=== PATIENT | female | born 1950 | race Caucasian/White ===

== ENCOUNTER → 2021-03-18 20:07 | Emergency (ER) | payer OTHER, SELFPAY ==
[2021-03-18 20:08] VITALS: BP 139/84; PULSE 100; RESP 15; TEMP 36.4; O2SAT 99; BMI 26.6
[2021-03-18 20:12] VITALS: BP 139/84; PULSE 100; RESP 15; TEMP 36.4; O2SAT 99
--- NOTE | 2021-03-18 20:35 | EX.ED.DYSGE1 ---
HPI History of Present Illness Chief Complaint: Cellulitis Narrative Narrative: Patient presenting with cellulitic change on the right inner thigh spans from just proximal to her knee medially just proximal to her groin. There is some swelling in this area. Patient denies any systemic signs or symptoms. She denies injury. She denies previous instances of infection. She states she has no significant medical history. PFSH PFS Medical History Hypertension Home Medications Artery Care 1 tab DAILY 03/18/21 [History Last Taken Unknown] HCTZ 25 mg DAILY 03/18/21 [History Last Taken Unknown] Organo Iodine Drops 2 drp DAILY 03/18/21 [History Last Taken Unknown] cephalexin 500 mg PO Q6 #40 capsule 03/18/21 [Rx Last Taken Unknown] omega 1-uth-tys-fish oil [Fish Oil] cap PO 03/18/21 [History Last Taken Unknown] Allergy/AdvReac Type Severity Reaction Status Date / Time No Known Allergies Allergy Verified 03/18/21 20:08 Social History Smoking Status: Never smoker ROS ROS ED Constitutional Constitutional ED: Denies chills or fever(s) Eyes Eyes: Denies blurry vision or change in vision ENT ENT ED: Denies ear pain or rhinorrhea Cardiovascular Cardiovascular: Denies chest pain or palpitations Respiratory/Chest Respiratory/Chest: Denies cough or dyspnea Gastrointestinal Gastrointestinal: Denies abdominal pain, nausea or vomiting Genitourinary Genitourinary ED: Denies dysuria or hematuria Musculoskeletal Musculoskeletal: Denies arthralgias or myalgias Integumentary Reports rash EXAM Physical Exam Const Vital Signs: 03/18/21 20:08 03/18/21 20:12 03/18/21 20:19 Temperature 97.6 F L 97.6 F L Temperature Source Temporal Temporal Pulse Rate 100 100 Respiratory Rate 15 15 Respiratory Pattern Normal Blood Pressure 139/84 H 139/84 H Blood Pressure Mean 102 102 Pulse Ox 99 99 Oxygen Delivery Method Room Air Room Air Positive well nourished General Appearance ED: NAD HEENT Reports moist mucous membranes Negative for trauma Eyes PERRL and EOMs intact bilaterally Resp normal respiratory effort and clear to auscultation bilaterally Cardio regular rate and regular rhythm Neuro oriented x3 and CN's II-XII intact bilaterally Sensorium / Orientation: alert Psych mental status grossly normal Skin Skin Narrative: 15 cm x 3 cm area of erythema on the right inner thigh with what appears to be lymphadenopathy underlying. Minimally tender to palpation. Mildly increased warmth. MDM MDM MDM Narrative Medical decision making narrative: Patient has cellulitic change on the right inner thigh. There is also some lymphadenopathy with no history of DVT. Patient will be started on Keflex in the ED and will be given a prescription for this. Because of the lymphadenopathy I will have her leg ultrasound tomorrow to rule out DVT. Patient amenable to this plan. Given return precautions. Patient stable discharge. Impression: 1. Right leg cellulitis 2. Right leg lymphadenopathy Discharge Plan Triage Chief Complaint: Cellulitis ED Provider: Liang Jorgensen Dx/Rx/DC Orders Instructions: Lymphadenopathy, Cellulitis Prescriptions: New cephalexin 500 mg capsule 500 mg PO Q6 Qty: 40 RF: 0 No Action Artery Care 1 TAB 1 tab DAILY RF: 0 omega 8-gxk-lkn-fish oil [Fish Oil] 1,200 (144-216) mg Capsule PO RF: 0 HCTZ 25 MG 25 mg DAILY RF: 0 Organo Iodine Drops 2 DROP 2 drp DAILY RF: 0 Primary Care Provider: Jamar Aceves Referrals: Jamar Aceves DO [Primary Care Provider] - Disposition Disposition: Home, Self Care
== END | disposition home or self-care (01) ==
PROVIDERS: Emergency Provider Student in an Organized Health Care Education/Training Program; PCP Family Medicine
DX: L03.115 Cellulitis of right lower limb (principal); R59.1 Generalized enlarged lymph nodes
CPT/HCPCS: 99285

== ENCOUNTER 2025-03-12 17:12 | Emergency (ER) | payer OTHER, SELFPAY ==
[2025-03-12 17:13] VITALS: BP 150/91; PULSE 94; RESP 16; TEMP 37.1; O2SAT 96; BMI 29.1
[2025-03-12 17:16] VITALS: BP 150/91; PULSE 95; RESP 16; TEMP 37.1; O2SAT 97
[2025-03-12] MEDS: Smz/Tmp Ds Tablet 1 TABLET PO (18:06)
[2025-03-12 18:08] VITALS: BP 127/75; PULSE 93; RESP 18; TEMP 37; O2SAT 96
== END 2025-03-12 18:12 | disposition home or self-care (01) ==
PROVIDERS: Emergency Provider Emergency Medicine; PCP Family Medicine; Visit Provider Emergency Medicine
DX: L03.114 Cellulitis of left upper limb (principal); I10 Essential (primary) hypertension; Z79.899 Other long term (current) drug therapy
CPT/HCPCS: 99282

== ENCOUNTER 2025-03-15 14:27 | Emergency (ER) | payer OTHER, SELFPAY ==
[2025-03-15 14:29] VITALS: BP 141/88; PULSE 81; RESP 18; TEMP 36.8; O2SAT 97; BMI 28.9
[2025-03-15 16:28] VITALS: BP 132/83; PULSE 82; RESP 14; O2SAT 99
[2025-03-15] MEDS: 0.9% Normal Saline (1000mL) 1,000 ML 1000 ML IV (17:33)
[2025-03-15 17:36] LABS: Hematocrit 37.0 % (37-47); Hemoglobin 12.5 g/dL (12.0-15.0); Immature Granulocytes Count 0.040 X10^3/uL (0.0-0.0); Mean Corp Hgb Conc 33.8 g/dL (32-36); Mean Corpuscular Volume 83.5 fL (81-99); Mean Platelet Vol. 8.7 fl (6.2-12.0); NRBC Flagged by Analyzer 0 % (0-5); Platelet Count 411 K/mm3 (150-450); RBC Distribution Width CV 12.4 % (11.6-14.6); RBC Distribution Width SD 37.8 fl (35.1-43.9); Red Blood Count 4.43 M/mm3 (4.2-5.4); White Blood Count 8.5 K/mm3 (4.4-11.0)
[2025-03-15 18:00] VITALS: BP 150/92; PULSE 79; RESP 17; O2SAT 98
[2025-03-15 18:15] LABS: Anion Gap 13 (5-15); BUN 12 mg/dL (4-19); BUN/Creat Ratio 14.3 RATIO (10-20); Calcium,Total 9.8 mg/dL (7.6-11.0); Carbon Dioxide 25.1 mmol/L (21.0-32.0); Chloride 95 mmol/L (98-108); Estimated Creatinine Clearance 55.69 ml/min (50-250); Glucose 114 mg/dL (70-99); Potassium 3.5 mmol/L (3.3-5.1)
[2025-03-15 19:11] VITALS: BP 150/92; PULSE 82; RESP 16; O2SAT 98
[2025-03-15 20:26] VITALS: BP 130/107; PULSE 91; RESP 18; TEMP 36.8; O2SAT 98
== END 2025-03-15 20:33 | disposition home or self-care (01) ==
PROVIDERS: Emergency Provider Emergency Medicine; PCP Family Medicine; Visit Provider Emergency Medicine
DX: R53.1 Weakness (principal); L27.1 Localized skin eruption due to drugs and medicaments taken internally; T36.8X5A Adverse effect of other systemic antibiotics, initial encounter; L03.114 Cellulitis of left upper limb; I10 Essential (primary) hypertension; Z79.899 Other long term (current) drug therapy
CPT/HCPCS: 80048; 85025; 96360; 96361; 99283; A4216

== ENCOUNTER 2025-03-27 16:51 | Emergency (ER) | payer OTHER, SELFPAY ==
[2025-03-27 16:52] VITALS: BP 155/99; PULSE 100; RESP 16; TEMP 37; O2SAT 100; BMI 28.8
--- NOTE | 2025-03-27 17:19 | RAD_ITS ---
PROCEDURE: CERV SPINE 2 OR 3 VIEWS 03/27/2025 REASON FOR EXAM: LEFT CERVICAL RADICULOPATHY TECHNIQUE: CERV SPINE 2 OR 3 VIEWS COMPARISON: None FINDINGS: Cervical vertebral body heights and alignment are maintained. There is mild multilevel disc height loss with endplate osteophyte formation, uncovertebral and facet arthrosis which is worst at C5-6 and C6-7. Prevertebral soft tissues are normal in thickness. The odontoid view is unremarkable. Lung apices are clear. RAD/Cerv Spine 2 or 3 Views IMPRESSION: Mild degenerative changes of the cervical spine are worst at C5-6 and C6-7. Reading Location: [id number]
--- OUTSIDE RECORDS SUMMARY | 2025-03-27 17:23 | XMS RPT_ITS | CCD ---
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 Jamar Aceves DO Primary Care Provider Dr. Sergio Benavides DO Emergency Provider Hong OSBORNE, Dr. Carlos Emergency Provider Jamar Aceves Primary Care Unavailable Terrance Pitts Attending Unavailable Jamar Aceves Primary Care Unavailable Sergio Benavides Attending Unavailable Allergies Allergy Classification Reported Allergen(s) Allergy Type Date of Onset Reaction(s) Facility (1 source) Sulfamethoxazole Drug Allergy 5 [facility] (1 source) Trimethoprim Drug Allergy 5 [facility] (1 source) Sulfamethoxazole Drug Allergy 5 [facility] (1 source) Trimethoprim Drug Allergy 5 [facility] Medications Current Medications Medication Drug Class(es) Dates Sig (Normalized) Sig (Original) cephalexin 500 mg oral capsule (3 sources) Cephalosporin Antibacterial Start: 03-15-2025 take 1 capsule by mouth three times daily Cephalexin 500 mg capsule Active 500 mg PO THREE TIMES A DAY March 15, 2025 12:00am Start: 03-18-2021 End: 03-12-2025 take 1 capsule by mouth every six hours Cephalexin 500 mg capsule Discontinued 500 mg PO EVERY 6 HOURS 40 0 March 18, 2021 12:00am March 12, 2025 5:13pm hydroCHLOROthiazide 25 mg oral tablet (2 sources) Thiazide Diuretic Start: 03-12-2025 take 1 tablet by mouth once daily Hydrochlorothiazide 25 mg tablet Active 25 mg PO DAILY March 12, 2025 12:00am sulfamethoxazole 800 mg / trimethoprim 160 mg oral tablet (2 sources) Dihydrofolate Reductase Inhibitor Antibacterial, Sulfonamide Antimicrobial Start: 03-12-2025 Sulfamethoxazole-Trime thoprim (Bactrim Ds) 800-160 mg tablet Active 1 {tbl} PO TWICE A DAY 14 7 0 March 12, 2025 12:00am Completed/Discontinued Medications Medication Drug Class(es) Dates Sig (Normalized) Sig (Original) Artery Care 1 TAB (2 sources) Start: 03-18-2021 End: 03-12-2025 Artery Care 1 TAB Discontinued 1 {tbl} DAILY March 18, 2021 12:00am March 12, 2025 5:13pm HCTZ 25 MG (2 sources) Start: 03-18-2021 End: 03-12-2025 HCTZ 25 MG Discontinued 25 mg DAILY March 18, 2021 12:00am March 12, 2025 5:13pm [place] 2-Hts-Lpq-Fish Oil (Fish Oil) 1,200 (144-216) mg Capsule (2 sources) Start: 03-18-2021 End: 03-12-2025 [place] 5-Dfj-Uhq-Fish Oil (Fish Oil) 1,200 (144-216) mg Capsule Discontinued NMA PO March 18, 2021 12:00am March 12, 2025 5:13pm Organo Iodine Drops 2 DROP (2 sources) Start: 03-18-2021 End: 03-12-2025 Organo Iodine Drops 2 DROP Discontinued 2 NMA DAILY March 18, 2021 12:00am March 12, 2025 5:13pm 2 DROPS IN WATER Problems Problem Classification Problem Date Documented Da te Episodic/Chronic Malaise and fatigue (1 source) Weakness; Translations: [Weakness] Onset: 03-19-2025 Episodic Skin and subcutaneous tissue infections (3 sources) Cellulitis; Translations: [Cellulitis, unspecified] Onset: 03-19-2025 03-12-2025 Episodic Results Test Name Value Interpretation Reference Range Facility Absolute lymphocyte countOrd ered By: Terrance Pitts on 03-15-2025 Lymphocytes Auto (Unsp spec) [#/Vol] 1.46 10*3/uL 0.83-4.51 [facility] Absolute neutrophil countOrd ered By: Terrance Pitts on 03-15-2025 Neutrophils (Bld) [#/Vol] 6.5 10*3/uL 2.0-7.7 [facility] Anion gap in Serum or Plasma Ordered By: Terrance Pitts on 03-15-2025 Anion gap [Moles/Vol] 13 mmol/L 5-15 [facility] Automated lymphocyte count a s percentage of total leukocytesOrdered By: Terrance Pitts on 03-15-2025 Lymphocytes/100 WBC Auto (Unsp spec) 17.2 % Low 19-41 [facility] BUN/creatinine ratioOrdered By: Terrance Pitts on 03-15-2025 Urea nitrogen/Creatinine [Mass ratio] 14.3 mg/mg 10- [facility] Basic Metabolic Profile (BMP )on 03-15-2025 BUN/CRE 14.3 RATIO Normal 06-28 [facility] Comment on above: Performed By: #### L 500.2500, L100.0100 #### [facility] [address] [place], [address] Calcium [Mass/Vol] 9.8 mg/dL Normal 7.6-11.0 [facility] Comment on above: Performed By: #### L 500.2500, L100.0100 #### [facility] [address] [place], [address] Chloride [Moles/Vol] 95 mmol/L Low 98-108 [facility] Comment on above: Performed By: #### L 500.2500, L100.0100 #### [facility] [address] [place], [address] CO2 [Moles/Vol] 25.1 mmol/L Normal 21.0-32.0 [facility] Comment on above: Performed By: #### L 500.2500, L100.0100 #### [facility] [address] [place], [address] Creatinine [Mass/Vol] 0.81 mg/dL Normal 0.70-1.20 [facility] Comment on above: Performed By: #### L 500.2500, L100.0100 #### [facility] [address] [place], [address] ECRCL 55.69 ml/min Normal 50-250 [facility] Comment on above: Performed By: #### L 500.2500, L100.0100 #### [facility] [address] [place], [address] GAP 13 Normal 5-15 [facility] Comment on above: Performed By: #### L 500.2500, L100.0100 #### [facility] [address] [place], [address] GFR/1.73 sq M.predicted among non-blacks MDRD (S/P/Bld) [Vol rate/Area] 75 mL/min/{1.73_m2} Normal >60 [facility] Comment on above: Result Comment: mL/m in/1.73m2 CKD-EPI Creatinine Equation (2020) Performed By: #### L 500.2500, L100.0100 #### [facility] [address] [place], [address] Glucose [Mass/Vol] 114 mg/dL High 70-99 [facility] Comment on above: Performed By: #### L 500.2500, L100.0100 #### [facility] [address] [place], [address] Potassium [Moles/Vol] 3.5 mmol/L Normal 3.3-5.1 [facility] Comment on above: Performed By: #### L 500.2500, L100.0100 #### [facility] [address] [place], [address] Sodium [Moles/Vol] 133 mmol/L Normal 133-145 [facility] Comment on above: Performed By: #### L 500.2500, L100.0100 #### [facility] [address] [place], [address] Urea nitrogen [Mass/Vol] 12 mg/dL Normal 4-19 [facility] Comment on above: Performed By: #### L 500.2500, L100.0100 #### [facility] [address] [place], [address] Basophil percentageOrdered B y: Terrance Pitts on 03-15-2025 Basophils/100 WBC (Bld) 0.2 % 0-1 [facility] CBC W/Diff, Automatedon Absolute Lymph 1.46 X10 3/uL Normal 0.83-4.51 [facility] Comment on above: Performed By: #### L 500.2500, L100.0100 #### [facility] [address] [place], [address] Absolute Neut 6.5 X10 3/uL Normal 2.0-7.7 [facility] Comment on above: Performed By: #### L 500.2500, L100.0100 #### [facility] [address] [place], [address] Basophils/100 WBC (Bld) 0.2 % Normal 0-1 [facility] Comment on above: Performed By: #### L 500.2500, L100.0100 #### [facility] [address] [place], [address] Eosinophils/100 WBC (Bld) 2.5 % Normal 0-5 [facility] Comment on above: Performed By: #### L 500.2500, L100.0100 #### [facility] [address] [place], [address] Erythrocyte distribution width (RBC) [Ratio] 12.4 % Normal 11.6-14.6 [facility] Comment on above: Performed By: #### L 500.2500, L100.0100 #### [facility] [address] [place], [address] Hematocrit (Bld) [Volume fraction] 37.0 % Normal 37-47 [facility] Comment on above: Performed By: #### L 500.2500, L100.0100 #### [facility] [address] [place], [address] Hemoglobin (Bld) [Mass/Vol] 12.5 g/dL Normal 12.0-15.0 [facility] Comment on above: Performed By: #### L 500.2500, L100.0100 #### [facility] [address] [place], [address] IG% 0.500 Normal 0.0-0.9 [facility] Comment on above: Result Comment: IG% - Immature Granulocytes (promyelocytes, myelocytes and metamyelocytes) > 1% indicates that a LEFT SHIFT is Present. Performed By: #### L 500.2500, L100.0100 #### [facility] [address] [place], [address] Lymphocytes/100 WBC (Bld) 17.2 % Low 19-41 [facility] Comment on above: Performed By: #### L 500.2500, L100.0100 #### [facility] [address] [place], [address] MCH (RBC) [Entitic mass] 28.2 pg Normal 27.0-32.0 [facility] Comment on above: Performed By: #### L 500.2500, L100.0100 #### [facility] [address] [place], [address] MCHC (RBC) [Mass/Vol] 33.8 g/dL Normal 32-36 [facility] Comment on above: Performed By: #### L 500.2500, L100.0100 #### [facility] [address] [place], [address] MCV (RBC) [Entitic vol] 83.5 fL Normal 81-99 [facility] Comment on above: Performed By: #### L 500.2500, L100.0100 #### [facility] [address] [place], [address] Monocytes/100 WBC (Bld) 3.8 % Normal 0-10 [facility] Comment on above: Performed By: #### L 500.2500, L100.0100 #### [facility] [address] [place], [address] Neutrophils/100 WBC (Bld) 75.8 % High 47-70 [facility] Comment on above: Performed By: #### L 500.2500, L100.0100 #### [facility] [address] [place], [address] Nucleated RBC (Bld) [#/Vol] 0 10*3/uL Normal 0-5 [facility] Comment on above: Performed By: #### L 500.2500, L100.0100 #### [facility] [address] [place], [address] Platelet mean volume (Bld) [Entitic vol] 8.7 fL Normal 6.2-12.0 [facility] Comment on above: Performed By: #### L 500.2500, L100.0100 #### [facility] [address] [place], [address] Platelets (Bld) [#/Vol] 411 10*3/uL Normal 150-450 [facility] Comment on above: Performed By: #### L 500.2500, L100.0100 #### [facility] [address] [place], [address] RBC (Bld) [#/Vol] 4.43 10*6/uL Normal 4.2-5.4 [facility] Comment on above: Performed By: #### L 500.2500, L100.0100 #### [facility] [address] [place], [address] RDW SD 37.8 fl Normal 35.1-43.9 [facility] Comment on above: Performed By: #### L 500.2500, L100.0100 #### [facility] [address] [place], [address] WBC (Bld) [#/Vol] 8.5 10*3/uL Normal 4.4-11.0 [facility] Comment on above: Performed By: #### L 500.2500, L100.0100 #### [facility] [address] [place], [address] Carbon dioxide, total [Moles /volume] in Central venous bloodOrdered By: Terrance Pitts on 03-15-2025 CO2 [Moles/Vol] 25.1 mmol/L 21.0-32.0 [facility] Chloride assayOrdered By: Leo Pitts on 03-15-2025 Chloride [Moles/Vol] 95 mmol/L Low 98-108 [facility] Emergency Department Summary on 03-15-2025 Emergency Department Summary [facility] Medical Records Department [address] [place] [address] Emergency Department Summary 03/15/25 MR#: [id number] Acct: [id number] Name: TONY TOTH Rep #: [id number] : 1950 75 From: Terrance Pitts MD PCP: Dr. Jamar Aceves, DO Status:DEP ER Location: ED HPI History of Present Illness Chief Complaint: Weakness Informant: patient and family Onset/Context/Van key Onset: Days Context: Gradual Onset Timing: Continuous Current Severity: Mild Maximum Severity: Mild Narrative Narrative: 75-year-old [facility] female history of hypertension. Had poison jose angel on her left arm about a week ago started having redness and discomfort was seen in the emergency department this past Saturday with diagnosis of cellulitis. Was started on Bactrim. She was taken to Bactrim for several days and developed a rash on her extremities consistent with allergic reaction. Talk to her primary care physician today who stopped the Bactrim and called her in another antibiotic which she is going to start but has not taken it yet. Family states she is she has been generally weak and has not had much p.o. intake they are concerned she is dehydrated. She denies vomiting or fever. She denies diarrhea or melena. Prior similar symptoms: No Recent Illness/Hospitaliza tion: No PFSH PFSH Medical History Wrist fracture Hypertension Home Medications ???Medication ???Instructions ???Recorded ???Last Taken ???Type hydrochlorothiazide 25 mg tablet 25 mg PO DAILY 03/12/25 03/15/25 H istory sulfamethoxazole 800 1 tab PO BID 7 days #14 tabs 03/1203/15/25 Rx mg-trimethoprim 160 mg tablet (Bactrim DS) cephalexin 500 mg capsule 500 mg PO TID 03/15/25 Unknown His tory Allergy/AdvReac Type Severity Reaction Status Date / Time sulfamethoxazole (From Allergy Hives Verified 03/15/25 16:30 Bactrim) trimethoprim (From Bactrim) Allergy Hives Verified 03/15/25 16:30 Surgical History Hx of cholecystectomy H/O hernia repair Social History Smoking Status: Never smoker ROS ROS ED ROS Narrative Decreased oral intake. Constitutional Constitutional ED: Denies chills or fever(s) Eyes Eyes: Denies blurry vision ENT ENT ED: Denies ear pain Cardiovascular Cardiovascular: Denies chest pain Respiratory/Chest Respiratory/Chest: Denies cough or dyspnea Gastrointestinal Gastrointestinal: Denies abdominal pain, constipation, diarrhea, melena or vomiting Genitourinary Genitourinary ED: Denies dysuria or hematuria Musculoskeletal Musculoskeletal: Denies arthralgias or back pain Integumentary Reports rash; Denies abscess or Abrasions Neurologic Neurologic: Denies headache(s) Psychiatric Psychiatric: Denies anxiety Endocrine Endocrinology: Denies cold intolerance Hematologic/Lymphat ic Hematologic/Lymphat ic: Reports none Allergic/Immunologi c Allergic/Immunologi c ED: Denies mouth swelling, tongue swelling or urticaria EXAM Physical Exam Narrative Exam Narrative: 75-year-old female sitting upright in bed. Vital signs stable afebrile. Pulse ox 97% on room air no signs hypoxia. Family member with her. Patient does not look septic or toxic. Suspect mild dehydration. H EENT exam pupils round react to light. Dry mucous membranes. Neck nontender JVD. Lungs clear to auscultation bilaterally. Heart regular rhythm rate about 80 no murmur. Chest wall ribs nontender. Abdomen soft nontender. Back she has mild left trapezius tenderness consistent with muscle spasm or muscle tenderness. Spine nontender. Moving all 4 extremities. She has a cellulitis on her left forearm and elbow. However she has normal range of motion and strength no septic joint. She has a rash on her right leg consistent with allergic reaction it blanches. There is no axillary lymphadenopathy. The rash on her elbows about a foot length. Going from the mid forearm up to her mid upper arm. There is no sloughing of skin. Neurologically she is awake alert. Answering questions and following commands. Const Vital Signs: 03/15/25 14:29 03/15/25 16:27 03/15/25 16:28 Temperature 98.2 F Temperature Source Oral Pulse Rate 81 82 Respiratory Rate 18 14 Respiratory Pattern Normal Blood Pressure 141/88 H 132/83 H Blood Pressure Mean 105 99 Pulse Ox 97 99 Oxygen Delivery Method Room Air Room Air 03/15/25 18:00 03/15/25 19:11 Temperature Temperature Source Pulse Rate 79 82 Respiratory Rate 17 16 Respiratory Pattern Blood Pressure 150/92 H 150/92 H Blood Pressure Mean 111 111 Pulse Ox 98 98 Oxygen Delivery Method Room Air Room Air Positive well nourished and well developed; (more content not included)... Normal [facility] Eosinophil percentageOrdered By: Terrance Pitts on 03-15-2025 Eosinophils/100 WBC (Bld) 2.5 % 0-5 [facility] Erythrocyte distribution wid th ratioOrdered By: Terrance Pitts on 03-15-2025 Erythrocyte distribution width (RBC) [Ratio] 12.4 % 11.6-14.6 [facility] Erythrocyte distribution wid th standard deviationOrdered By: Terrance Pitts on 03-15-2025 Erythrocyte distribution width (RBC) [Ratio] 37.8 fl 35.1-43.9 [facility] Glomerular filtration rate ( GFR) estimation/1.73 sq m using serum, plasma, or whole bOrdered By: Terrance Pitts on 03-15-2025 GFR/1.73 sq M.predicted among non-blacks MDRD (S/P/Bld) [Vol rate/Area] 75 mL/min/{1.73_m2} >60 [facility] Comment on above: mL/min/1.73m2 CKD-EP I Creatinine Equation (2020) Hematocrit Auto (Bld) [Volum e fraction]Ordered By: Terrance Pitts on 03-15-2025 Hematocrit (Bld) [Volume fraction] 37.0 % 37-47 [facility] Hemoglobin measurementOrdere d By: Terrance Pitts on 03-15-2025 Hemoglobin (Bld) [Mass/Vol] 12.5 g/dL 12.0-15.0 [facility] Immature granulocytes/100 WB C Auto (Bld)Ordered By: Terrance Pitts on 03-15-2025 Immature granulocytes/100 WBC (Bld) 0.500 % 0.0-0.9 [facility] Comment on above: IG% - Immature Granu locytes (promyelocytes, myelocytes and metamyelocytes) > 1% indicates that a LEFT SHIFT is Present. MCV (mean corpuscular volume ) determinationOrdered By: Terrance Pitts on 03-15-2025 MCV (RBC) [Entitic vol] 83.5 fL 81-99 [facility] Mean corpuscular hemoglobin (MCH) determinationOrdered By: Terrance Pitts on 03-15-2025 MCH (RBC) [Entitic mass] 28.2 pg 27.0-32.0 [facility] Mean corpuscular hemoglobin concentration (MCHC) determinationOrdered By: Terrance Pitts on 03-15-2025 MCHC (RBC) [Mass/Vol] 33.8 g/dL 32-36 [facility] Mean platelet volume determi nationOrdered By: Terrance Pitts on 03-15-2025 Platelet mean volume (Bld) [Entitic vol] 8.7 fL 6.2-12.0 [facility] Monocyte percentageOrdered B y: Terrance Pitts on 03-15-2025 Monocytes/100 WBC (Bld) 3.8 % 0-10 [facility] Neutrophil percentageOrdered By: Terrance Pitts on 03-15-2025 Neutrophils/100 WBC (Bld) 75.8 % High 47-70 [facility] Nucleated red blood cell per centageOrdered By: Terrance Pitts on 03-15-2025 Nucleated RBC/100 WBC (Bld) [Ratio] 0 % 0-5 [facility] Platelet countOrdered By: Leo Pitts on 03-15-2025 Platelets (Bld) [#/Vol] 411 10*3/uL 150-450 [facility] Potassium measurement (mass/ volume)Ordered By: Terrance Pitts on 03-15-2025 Potassium (Unsp spec) [Mass/Vol] 3.5 mmol/L 3.3-5.1 [facility] RBC Auto (Bld) [#/Vol]Ordere d By: Terrance Pitts on 03-15-2025 RBC (Bld) [#/Vol] 4.43 10*6/uL 4.2-5.4 [facility] Serum creatinine measurement (mass/volume)Ordered By: Terrance Pitts on 03-15-2025 Creatinine [Mass/Vol] 0.81 mg/dL 0.70-1.20 [facility] Serum glucose measurement (m ass/volume)Ordered By: Terrance Pitts on 03-15-2025 Glucose [Mass/Vol] 114 mg/dL High 70-99 [facility] Serum or plasma calcium adilia urement (mass/volume)Ordered By: Terrance Pitts on 03-15-2025 Calcium [Mass/Vol] 9.8 mg/dL 7.6-11.0 [facility] Serum or plasma urea nitroge n measurement (mass/volume)Ordered By: Terrance Pitts on 03-15-2025 Urea nitrogen [Mass/Vol] 12 mg/dL 4-19 [facility] Sodium levelOrdered By: Terrance Pitts on 03-15-2025 Sodium [Moles/Vol] 133 mmol/L 133-145 [facility] White blood cell (WBC) count Ordered By: Terrance Pitts on 03-15-2025 WBC (Bld) [#/Vol] 8.5 10*3/uL 4.4-11.0 [facility] Emergency Department Summary on 03-12-2025 Emergency Department Summary [facility] Medical Records Department [address] [place] [address] Emergency Department Summary 03/12/25 MR#: [id number] Acct: [id number] Name: TONY TOTH Rep #: [id number] : 1950 75 From: Sergio Benavides DO PCP: Dr. Jamar Aceves, Status:REG ER Location: ED HPI History of Present Illness Chief Complaint: Cellulitis [facility] Medical History (Updated 03/12/25 @ 17:[address] Sergio Benavides, DO) Wrist fracture Hypertension Home Medications ???Medication ???Instructions ???Recorded ???Last Taken ???Type hydrochlorothiazide 25 mg tablet 25 mg PO DAILY 03/12/25 Unknown Hi story sulfamethoxazole 800 1 tab PO BID 7 days #14 tabs 03/12 Unknown Rx mg-trimethoprim 160 mg tablet (Bactrim DS) Allergy/AdvReac Type Severity Reaction Status Date / Time No Known Allergies Allergy Verified 03/12/25 17:13 Surgical History (Updated 03/12/25 @ 17:15 by Mounika Quevedo) Hx of cholecystectomy H/O hernia repair Social History Smoking Status: Never smoker EXAM Physical Exam Const Vital Signs: 03/12/25 17:13 03/12/25 17:16 03/12/25 18:08 Temperature 98.8 F 98.8 F 98.6 F Temperature Source Oral Oral Pulse Rate 94 95 93 Respiratory Rate 16 16 18 Blood Pressure 150/91 H 150/91 H 127/75 H Blood Pressure Mean 110 110 92 Pulse Ox 96 97 96 MDM MDM MDM Narrative Medical decision making narrative: HISTORY OF PRESENT ILLNESS: Chief complaint: Cellulitis 75-year-old female history of hypertension presents with concern for cellulitis. Notes 5 days of symptoms. Notes left elbow redness. Notes she was working the garden in some IV and started as possible poison jose angel now is red warm and swollen. Denies falls or trauma. Denies fever chills. Denies vomiting. REVIEW OF SYSTEMS: Pertinent positives: Left elbow pain, leg pain Pertinent negatives: Notes her legs feel slightly weak. PHYSICAL EXAM: Nursing triage notes reviewed, Vital signs reviewed Constitutional: please see mdm Lungs: Clear to auscultation, No wheezing or rales. No increased work of breathing, no conversational dyspnea, no accessory muscle use, no nasal flaring. No respiratory distress noted Heart: Regular rate and rhythm, No murmurs, No rubs and No gallops, 2+ distal pulses (radial, femoral, posterior tibial) in all extremities Extremities: No edema, g full range of motion in left elbow flexion/extension. Neuro: No new focal neurological deficits, cranial nerves II through XII intact, 5/5 strength in all present extremities. Intact sensation to light touch in all present extremities, 2+ reflexes bilateral patella tendons. Skin: Erythema noted to left upper arm proximally penitentiary up the humerus and penitentiary down the tibia. There is no crepitus or bullae. There is no palpable abscess. There is warmth and slight tenderness to palpation MEDICAL DECISION MAKING: Chief Complaint: please see HPI External records reviewed: Reviewed prior ED visit Factors affecting care: Hypertension Social determinants of health: none History obtained from others: none Consults: none [facility] Narrative: The patient was initially hemodynamically stable, afebrile, nontoxic-appearing. Exam consistent with cellulitis. No palpable abscess. No crepitus or bony distress. Good range of motion left elbow. No sign of septic arthritis. I considered the following differential diagnosis: Cellulitis, Patient looks well clinically. Not toxic. No SIRS criteria. Give oral antibiotics and discharge. The patient and/or family, caregivers express understanding. The patient and/or family, caregivers agrees with the plan. Shared decision making: I will have a discussion with the patient and or visitors regarding risk/benefits of further testing or admission. They will be made aware of of the risk/benefits inherent in this decision they will be given the opportunity to voice understanding. Total critical care time today provided was at least 0 minutes. This excludes separately billable procedures. Critical care time (if documented) is secondary to the patient having high probability of clinically significant/life threatening deterioration in the patient's condition which required my urgent intervention. Impression: 1. Left arm cellulitis 2. History of hypertension Dispo: Discharge home This note was generated with [employer] dictation software. It may contain incorrect words, spelling, and punctuation that were not noted in review of the chart prior to signing. Discharge Plan Triage Chief Complaint: Cellulitis ED Provider: Sergio Benavides Dx/Rx/DC Orders Clinical Impression: Cellulitis Instructions: Cellulitis Dc Prescriptions: New sulfamethoxazole-tr imethop (more content not included)... Normal [facility] Vital Signs Date Time Vital Sign Value Performing Clinician Gualberto miller 03-15-2025 20:26-0400 Body temperature 98.2 [degF] Dr. Jamar Aceves DO Work Phone: 5(448)[phone] [place] [address] 03-15-2025 20:26-0400 Diastolic blood pressure 107 mm[Hg] Dr. Jamar Aceves DO Work Phone: 5(200)[phone] [address] 03-15-2025 20:26-0400 Heart rate 91 /min Dr. Jamar Aceves DO Work Phone: 2(229)[phone] [address] 03-15-2025 20:26-0400 Respiratory rate 18 /min Dr. Jamar Aceves DO Work Phone: 2(276)[phone] [address] 03-15-2025 20:26-0400 SaO2% (BldA) [Mass fraction] 98 % Dr. Jamar Aceves DO Work Phone: 0(169)[phone] [place] [address] 03-15-2025 20:26-0400 Systolic blood pressure 130 mm[Hg] Dr. Jamar Aceves DO Work Phone: 1(226)[phone] [place] [address] 03-15-2025 14:29-0400 Body height 157.[address] Jamar Aceves DO Work Phone: 9(239)[phone] [address] 03-15-2025 14:29-0400 Body mass index (BMI) [Ratio] 28.9 kg/m2 Dr. Jamar Aceves DO Work Phone: 4(075)[phone] [place] [address] 03-15-2025 14:29-0400 Body weight 71.[address] Jamar Aceves DO Work Phone: 9(241)[phone] [place] [address] 03-12-2025 18:08-0400 Body temperature 98.6 [degF] Dr. Jamar Aceves DO Work Phone: 1(592)[phone] [address] 03-12-2025 18:08-0400 Diastolic blood pressure 75 mm[Hg] Dr. Jamar Aceves DO Work Phone: 7(056)[phone] [address] 03-12-2025 18:08-0400 Heart rate 93 /min Dr. Jamar Aceves DO Work Phone: 9(959)[phone] [place] [address] 03-12-2025 18:08-0400 Respiratory rate 18 /min Dr. Jamar Aceves DO Work Phone: 9(289)[phone] [place] [address] 03-12-2025 18:08-0400 SaO2% (BldA) [Mass fraction] 96 % Dr. Jamar Aceves DO Work Phone: [facility] 03-12-2025 18:08-0400 Systolic blood pressure 127 mm[Hg] Dr. Jamar Aceves DO Work Phone: [facility] 03-12-2025 17:13-0400 Body height 157.[address] Jamar Aceves DO Work Phone: [facility] 03-12-2025 17:13-0400 Body mass index (BMI) [Ratio] 29.1 kg/m2 Dr. Jamar Aceves DO Work Phone: [facility] 03-12-2025 17:13-0400 Body weight 72.[address] Jamar Aceves DO Work Phone: [facility] Encounters Encounter Date Encounter Type Care Provider Facility Start: 03-15-2025 End: 03-15-2025 Emergency department patient visit Dr. Jamar Aceves DO Work Phone: -Emergency Department Work Phone: Start: 03-12-2025 End: 03-12-2025 Emergency department patient visit Dr. Jamar Aceves DO Work Phone: -Emergency Department Work Phone: Procedures Date Procedure Procedure Detail Performing Clinician Start: 03-15-[address] Jamar Aceves DO Work Phone: Plan of Treatment Date Care Activity Detail Author Start: 03-15-2025 [facility] Patient Education [facility] Work Phone: Payers Date Payer Category Payer Self-pay 2025 Unknown [id number] Unknown [id number] Unknown [id number] Unknown [id number] Social History Date Type Detail Facility Start: 03-12-2025 End: 03-15-2025 Tobacco smoking status NHIS Never smoked tobacco (finding) [facility] Start: 1950 Sex Assigned At Female W [facility] Mental Status Date Assessment Result Facility 03-15-2025 Cognitive function Level Of Cons ciousness Awake;Alert;Appropriate;Follow s Commands [facility] Work Phone: Discharge summary 03-12-2025 Note Date & Type Note Facility 03-12-2025 Discharge summary [facility] Discharge summary 03-12-2025 Note Date & Type Note Facility 03-12-2025 Discharge summary Note Date/Time March 12, 2025 6:11p m [facility] Medical Records Department [address] [place] [address] Emergency Department Summary 03/12/25 MR#: [id number] Acct: [id number] Name: TONY TOTH Rep #:[id number] : 1950 75 From: Sergio Zamora PCP: Dr. Jamar Aceves DO Status:REG ER Location: ED HPI History of Present Illness Chief Complaint: Cellulitis [facility] Medical History (Updated 03/12/25 @ 17:[address] Sergio Benavides, ) Wrist fracture Hypertension Home Medications ?Medication ?Instructions ?Recorded ?Last Taken ?Type hydrochlorothiazide 25 mg tablet 25 mg PO DAILY Unknown History sulfamethoxazole 800 1 tab PO BID 7 days #14 tabs 03/12/25 Unknown Rx mg-trimethoprim 160 mg tablet (Bactrim DS) Allergy/AdvReac Type Severity Reaction Status Date / Time No Known Allergies Allergy Verified 03/12/25 17:13 Surgical History (Updated 03/12/25 @ 17:15 by Mounika Quevedo) Hx of cholecystectomy H/O hernia repair Social History Smoking Status: Never smoker EXAM Physical Exam Const Vital Signs: 03/12/25 17:13 03/12/25 17:16 03/12/25 18:08 Temperature 98.8 F 98.8 F 98.6 F Temperature Source Oral Oral Pulse Rate 94 95 93 Respiratory Rate 16 16 18 Blood Pressure 150/91 H 150/91 H 127/75 H Blood Pressure Mean 110 110 92 Pulse Ox 96 97 96 [facility] [place] Medical decision making narrative: HISTORY OF PRESENT ILLNESS: Chief complaint: Cellulitis 75-year-old female history of hypertension presents with concern for cellulitis. Notes 5 days of symptoms. Notes left elbow redness. 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 Denies falls or trauma. Denies fever chills. Denies vomiting. REVIEW OF SYSTEMS: Pertinent positives: Left elbow pain, leg pain Pertinent negatives: Notes her legs feel slightly weak. PHYSICAL EXAM: Nursing triage notes reviewed, Vital signs reviewed Constitutional: please see [facility] Lungs: Clear to auscultation, No wheezing or rales. No increased work of breathing, no conversational dyspnea, no accessory muscle use, no nasal flaring. No respiratory distress noted Heart: Regular rate and rhythm, No murmurs, No rubs and No gallops, 2+ distal pulses (radial, femoral, posterior tibial) in all extremities Extremities: No edema, g full range of motion in left elbow flexion/extension. Neuro: No new focal neurological deficits, cranial nerves II through XII intact,5/5 strength in all present extremities. Intact sensation to light touch in all present extremities, 2+ reflexes bilateral patella tendons. Skin: Erythema noted to left upper arm proximally penitentiary up the humerus and penitentiary down the tibia. There is no crepitus or bullae. There is no palpable abscess. There is warmth and slight tenderness to palpation MEDICAL DECISION MAKING: Chief Complaint: please see HPI External records reviewed: Reviewed prior ED visit Factors affecting care: Hypertension Social determinants of health: none History obtained from others: none Consults: none [facility] Narrative: The patient was initially hemodynamically stable, afebrile, nontoxic-appearing. Exam consistent with cellulitis. No palpable abscess. No crepitus or bony distress. Good range of motion left elbow. No sign of septic arthritis. I considered the following differential diagnosis: Cellulitis, Patient looks well clinically. Not toxic. No SIRS criteria. Give oral antibiotics and discharge. The patient and/or family, caregivers express understanding. The patient and/orfamily, caregivers agrees with the plan. Shared decision making: I will have a discussion with the patient and or visitors regarding risk/benefits of further testing or admission. They will be made aware of of the risk/benefits inherent in this decision they will be given the opportunity to voice understanding. Total critical care time today provided was at least 0 minutes. This excludes separately billable procedures. Critical care time (if documented) is secondary to the patient having high probability of clinically significant/life threatening deterioration in the patient's condition which required my urgent intervention. Impression: 1. Left arm cellulitis 2. History of hypertension Dispo: Discharge home This note was generated with [employer] dictation software. It may contain incorrectwords, spelling, and punctuation that were not noted in review of the chart prior to signing. Discharge Plan Triage Chief Complaint: Cellulitis ED Provider: Sergio Benavides Dx/Rx/DC Orders Clinical Impression: Cellulitis Instructions: Cellulitis Dc Prescriptions: New sulfamethoxazole-trimethoprim [Bactrim DS] 800-160 mg tablet 1 tab PO BID 7 Days Qty: 14 0RF No Action hydrochlorothiazide 25 mg tablet 25 mg PO DAILY Primary Care Provider: Jamar Aceves Referrals: Jamar Aceves DO [Primary Care Provider] - Activity Restrictions/Additional Instructions: Thank you for trusting us with your care today! Your clinical exam and history most consistent with likely cellulitis (superficial skin infection) Please take Tylenol (2 pills, 650 mg), ibuprofen (2 pills, 400 mg) every 6 hoursas needed for pain and fever control. Please return to the emergency department if your symptoms change or worsen. Please follow with your primary care physician for further outpatient evaluationand management. Print Language: Mongolian Disposition Disposition: Home, Self Care What to do if you have Problems For any increased pain, shortness of breath, bleeding, nausea or vomiting, chestpain, or any unexpected problems, contact your Primary Care Provider. Call [facility] ([phone]) or report to the closest Emergency Room. Call 911 if necessary. 03/12/25 1811 <Electronically signed by Sergio Benavides DO> Cosigner Signature (if applicable): CC: Dr. Jamar Aceves DO ~ Signed [facility] Work Phone: Evaluation note Note Date & Type Note Facility Evaluation note No assessment information availa ble [facility] Work Phone: Hospital Discharge instructions Note Date & Type Note Facility Hospital Discharge instructions Additional Instructions Thank you for trusting us with your care today! Your clinical exam and history most consistent with likely cellulitis (superficial skin infection) Please take Tylenol (2 pills, 650 mg), ibuprofen (2 pills, 400 mg) every 6 hours as needed for pain and fever control. Please return to the emergency department if your symptoms change or worsen. Please follow with your primary care physician for further outpatient evaluation and management. [facility] Work Phone: Hospital Discharge instructions Note Date & Type Note Facility Hospital Discharge instructions Additional Instructions Start your new antibiotic the Keflex. Follow-up with your doctor in 3 to 5 days to ensure you are improving. Plenty of fluids and rest. Tylenol for pain. Do not use the Bactrim or the initial antibiotic because you probably had allergic reaction to it. [facility] Work Phone: Reason for referral (narrative) Note Date & Type Note Facility Reason for referral (narrative) No reason for referral information available [facility] Work Phone: Chief Complaint and Reason for Visit Chief Complaint Admit Date cellulitis March 12, 2025 5:12p m Chief Complaint Admit Date cellulitis March 12, 2025 5:12p m weakness March 15, 2025 2:27p m Advance Directives No Advanced Directives Records Found Advance Directive Response Recorded Date/ Time Do you have a Healthcare Power of Ring Maker? No March 12, 2025 5:13pm Advance Directive Response Recorded Date/ Time Do you have a Healthcare Power of Ring Maker? Yes March 15, 2025 4:26pm Do you have a Healthcare Power of Ring Maker? No March 12, 2025 5:13pm Summary Purpose Family History No Family History Records Found Additional Source Comments Care Teams (unrecognized sec tion and content) Team Status: Active Member Role/Relationship Status Dates Dr. Jamar Aceves , DO Primary Care Provider Active Team Status: Inactive Member Role/Relationship Status Dates Dr. Jamar Aceves DO Primary Care Provider Active Start: March 12, 2025 End: March 12, 2025 Dr. Sergio Benavides , DO Emergency Provider Active Start: March 12, 2025 End: March 12, 2025 Team Status: Inactive Member Role/Relationship Status Dates Dr. Jamar Aceves DO Primary Care Provider Active Start: March 15, 2025 End: March 15, 2025 Dr. Terrance Pitts MD Emergency Provider Active S tart: March 15, 2025 End: March 15, 2025 Goals (unrecognized section and content) Goals may be documented in a n alternate sectionGoals may be documented in an alternate section INFORMATION SOURCE (unrecogn ized section and content) DATE CREATED AUTHOR 03/24/2025 [facility] FOR RECORDS PERTAINING TO PATIENTS WHO ARE OR HAVE BEEN ENROLLED IN A CHEMICAL DEPENDENCY/SUBSTANCEABUSE PROGRAM, SOME INFORMATION MAY BE OMITTED. This clinical summary was aggregated from multiple sources. Caution should be exercised in using it in the provision of clinical care. This summary normalizes information from multiple sources, and as a consequence, information in this document may materially change the coding, format and clinical context of patient data. In addition, data may be omitted in some cases. CLINICAL DECISIONS SHOULD BE BASED ON THE PRIMARY CLINICAL RECORDS. [facility] [employer] [facility]. provides no warranty or guarantee of the accuracy or completeness of information in this document.
[2025-03-27 18:54] VITALS: BP 152/76; PULSE 68; RESP 16; TEMP 37.1; O2SAT 100
--- NOTE | 2025-03-28 07:27 | EDS_ITS ---
HPI History of Present Illness Chief Complaint: Upper Extremity Injury Narrative Narrative: Presents pain Left upper extremity behind the arm radiating to the neck for the past couple weeks. Was seen in March for diagnosed cellulitis she returned a few days later. She finished Bactrim. Arm pain was continued. Denies trauma. Denies fever chills or sweats. Is right-hand dominant. Prior similar symptoms: No PFSH PFSH Medical History Wrist fracture Hypertension Home Medications ?Medication ?Instructions ?Recorded ?Last Taken ?Type hydrochlorothiazide 25 mg tablet 25 mg PO DAILY 03/15/25 History sulfamethoxazole 800 1 tab PO BID 7 days #14 tabs 03/12/25 03/15/25 Rx mg-trimethoprim 160 mg tablet (Bactrim DS) cephalexin 500 mg capsule 500 mg PO TID 03/15/25 Unkno wn History gabapentin 300 mg capsule 300 mg PO QHS #30 caps 03/27 Unknown Rx Allergy/AdvReac Type Severity Reaction Status Date / Time sulfamethoxazole (From Allergy Hives Verified 03/27/25 16:54 Bactrim) trimethoprim (From Bactrim) Allergy Hives Verified 03/27/25 16:54 Surgical History Hx of cholecystectomy H/O hernia repair Social History Smoking Status: Never smoker ROS ROS ED Constitutional Constitutional ED: Denies fever(s) Cardiovascular Cardiovascular: Denies chest pain Respiratory/Chest Respiratory/Chest: Denies cough Gastrointestinal Gastrointestinal: Denies diarrhea or vomiting Musculoskeletal Musculoskeletal: Reports other Details: Left arm pain. Integumentary Denies rash or wounds Neurologic Neurologic: Denies weakness EXAM Physical Exam Const Vital Signs: 03/27/25 16:52 03/27/25 18:54 Temperature 98.6 F 98.7 F Temperature Source Oral Pulse Rate 100 68 Respiratory Rate 16 16 Blood Pressure 155/99 H 152/76 H Blood Pressure Mean 117 101 Pulse Ox 100 100 Oxygen Delivery Method Room Air Positive well nourished and well developed General Appearance ED: well developed and NAD HEENT Reports moist mucous membranes normocephalic and atraumatic Eyes General Eye ED: Yes normal appearance of both eyes Neck full ROM Neck Narrative: Negative Spurling's, left lower paracervical tenderness. Chest Wall Chest: Negative for tenderness Resp normal respiratory effort and normal air movement Effort and Inspection: symmetric chest movement; Negative for respiratory distress Cardio regular rate, regular rhythm and no murmurs Peripheral Pulses: pulses 2+ throughout GI normal to inspection, nondistended, normoactive bowel sounds and non-tender Palpation: Negative for guarding or rebound tenderness present Extremity normal to inspection General Extremety ED: Negative for edema or tenderness General Extremity: Negative for edema Neuro oriented x3 and no sensory deficits noted Neuro Narrative: No weakness of shoulder abduction, 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 Soft compartments. Sensorium / Orientation: awake and alert Skin no rashes or lesions noted and no wounds Skin Narrative: No rashes noted arm, no erythema noted. MDM MDM MDM Narrative Medical decision making narrative: Differential diagnosis: Cervical radiculopathy Diagnosis considered but do not suspect: No clinical cellulitis or shingles My EKG interpretation: N/A Imaging independently reviewed and interpreted by myself: 3 view cervical spine x-ray: Degenerative changes lower cervical spine. Also read by radiology. External documents reviewed: N/A Test considered but not ordered: N/A ED course:Patient cellulitic history has resolved. She points pain along the C7 dermatome there is no current rash. She started on gabapentin cervical x-rays were ordered. X-ray notes degenerative changes lower cervical spine. She will be continued on gabapentin nightly at this time. She has a follow-up with her PCP in 3 days. She will keep this appointment for reevaluation. All questions were answered. Re-evaluation: stable Disposition discussed with patient/family/significant other: Patient and family Case discussed with consulting clinician: N/A This note was generated with [employer] dictation software. It may contain incorrect words, spelling, and punctuation that were not noted in checking the note before signing. Radiography Diagnostic Testing: Clinical Impression(s) from Imaging Studies Cervical Spine X-Ray 03/27/25 17:19 IMPRESSION: Mild degenerative changes of the cervical spine are worst at C5-6 and C6-7. Reading Location: [id number] Discharge Plan Triage Chief Complaint: Upper Extremity Injury ED Provider: Jacob Barnes Dx/Rx/DC Orders Clinical Impression: Cervical radiculopathy, Neck pain Instructions: Cervical Radiculopathy Prescriptions: New gabapentin 300 mg capsule 300 mg PO QHS Qty: 30 0RF No Action cephalexin 500 mg capsule 500 mg PO TID Patient Comments: HAS NOT STARTED hydrochlorothiazide 25 mg tablet 25 mg PO DAILY sulfamethoxazole-trimethoprim [Bactrim DS] 800-160 mg tablet 1 tab PO BID 7 Days Qty: 14 0RF Patient Comments: PCP TOLD TO DC TODAY AND START CEPHALEXIN Primary Care Provider: Jamar Aceves Referrals: Jamar Aceves DO [Primary Care Provider] - Keep Sujey appointment Activity Restrictions/Additional Instructions: Your cervical spine imaging mild degenerative changes lower C-spine. You are having cervical radicular symptoms on your left side. Continue gabapentin as prescribed. Follow-up with your doctor as scheduled on Saturday. Print Language: Sudanese Disposition Disposition: Home, Self Care Discharge Date/Time: 03/27/25 18:55
== END 2025-03-27 18:55 | disposition home or self-care (01) ==
PROVIDERS: Emergency Provider Emergency Medicine; PCP Family Medicine; Referring Provider Emergency Medicine; Visit Provider Emergency Medicine
DX: M50.122 Cervical disc disorder at C5-C6 level with radiculopathy (principal); M50.123 Cervical disc disorder at C6-C7 level with radiculopathy; I10 Essential (primary) hypertension; Z79.899 Other long term (current) drug therapy
CPT/HCPCS: 72040; 99282

== ENCOUNTER 2025-04-09 10:50 | Inpatient (IN) | payer OTHER, SELFPAY ==
[2025-04-09] VITALS (25 sets, daily range): BP systolic 93–142; BP diastolic 65–107; PULSE 74–167; RESP 16–37; TEMP 36.3–37; O2SAT 83–99; BMI 29.3; BMI 25.9
--- NOTE | 2025-04-09 11:14 | RAD_ITS ---
PROCEDURE: CHEST PA AND LATERAL 04/09/2025 REASON FOR EXAM: GENERAL MALAISE TECHNIQUE: CHEST PA AND LATERAL COMPARISON: None FINDINGS: Left lower lobe/retrocardiac opacity not excluded. Bibasilar subsegmental atelectasis. Trace left base effusion. No pneumothorax. Cardiac silhouette is within normal limits. Calcified aortic arch. No acute fractures. Extensive degenerative changes bilateral shoulders. RAD/Chest PA and Lateral IMPRESSION: Left lower lobe/retrocardiac opacity not excluded. Bibasilar subsegmental atele ctasis. Trace left base effusion. Reading Location: [id number]
--- NOTE | 2025-04-09 11:17 | EDS_ITS ---
HPI History of Present Illness Chief Complaint: Other, Pain/Inj Narrative Narrative: Chief complaint and HPI: Migratory body pain. 75-year-old female with past medical history of HTN presents for evaluation of migratory body pain. Patient states for the past 5 weeks she has been having migratory body pain. She states that the pain moves to different body parts. States that she has followed up with her PCP who was concern for arthritis. She also endorses decreased appetite and constipation. She denies any fever, chills, chest pain, shortness of breath, URI symptoms, nausea, vomiting, diarrhea, dysuria. Review of systems: See HPI Medications: As listed on the chart Allergies: As listed on the chart PFSH: Per chart Vital signs: As listed on the chart. Reviewed. Physical exam: Gen: A&O x4, NAD Head: Normocephalic, atraumatic Eyes: No sclera icterus, conjunctiva clear, PERRL, EOMI ENT: Moist mucous membranes Neck: Trachea midline, No JVD, full range of motion, nontender, no lymphadenopathy CV: RRR, no murmurs, no peripheral edema Resp: Lungs CTA BL, no w/r/c GI: Abd soft, non-distended, non-tender, no r/r/g Musc: Full ROM, no deformity, no swollen or warm joints Skin: Warm, dry Neuro: Alert, oriented, grossly intact, sensation intact Psych: Cooperative, appropriate mood and affect [facility] Medical History Wrist fracture Hypertension Home Medications ?Medication ?Instructions ?Recorded ?Last Taken ?Type hydrochlorothiazide 25 mg tablet 25 mg PO DAILY blood pressure 03/12/25 04/09/25 History gabapentin 300 mg capsule 300 mg PO QHS pain #30 caps 03/27/25 Unknown Rx Held on 04/09/25. Instructions: pt stopped taking Allergy/AdvReac Type Severity Reaction Status Date / Time sulfamethoxazole (From Allergy Hives Verified 03/27/25 16:54 Bactrim) trimethoprim (From Bactrim) Allergy Hives Verified 03/27/25 16:54 Surgical History Hx of cholecystectomy H/O hernia repair Social History Smoking Status: Never smoker EXAM Physical Exam Const Vital Signs: 04/09/25 10:50 04/09/25 11:25 04/09/25 11:45 Temperature 97.6 F L Temperature Source Temporal Pulse Rate 74 139 H Respiratory Rate 18 21 H Respiratory Pattern Normal Blood Pressure 126/90 H 130/73 H Blood Pressure Mean 102 89 Pulse Ox 98 95 Oxygen Delivery Method Room Air 04/09/25 12:00 04/09/25 12:15 04/09/25 12:30 Temperature Temperature Source Pulse Rate 129 H 133 H 127 H Respiratory Rate 22 H 20 H 29 H Respiratory Pattern Blood Pressure Blood Pressure Mean Pulse Ox Oxygen Delivery Method 04/09/25 12:34 04/09/25 12:45 04/09/25 13:00 Temperature Temperature Source Pulse Rate 129 H 92 94 Respiratory Rate 25 H 20 H 20 H Respiratory Pattern Blood Pressure 131/89 H 105/74 109/65 Blood Pressure Mean 98 83 80 Pulse Ox 98 97 97 Oxygen Delivery Method 04/09/25 13:15 04/09/25 13:21 04/09/25 13:30 Temperature Temperature Source Pulse Rate 103 H 94 87 Respiratory Rate 16 20 H 37 H Respiratory Pattern Blood Pressure 121/85 H 121/85 H 128/75 H Blood Pressure Mean 95 97 86 Pulse Ox 98 97 92 Oxygen Delivery Method Room Air 04/09/25 13:45 04/09/25 14:00 04/09/25 14:15 Temperature Temperature Source Pulse Rate 88 108 H 100 Respiratory Rate 23 H 27 H 20 H Respiratory Pattern Blood Pressure 119/89 H 139/78 H 110/82 H Blood Pressure Mean 99 98 93 Pulse Ox 83 Oxygen Delivery Method 04/09/25 14:30 04/09/25 14:45 Temperature Temperature Source Pulse Rate 112 H 90 Respiratory Rate 22 H 20 H Respiratory Pattern Blood Pressure 107/66 115/67 Blood Pressure Mean 74 81 Pulse Ox Oxygen Delivery Method MDM MDM MDM Narrative Medical decision making narrative: 75-year-old female with past medical history of HTN presents for evaluation of migratory body pain. Onset of symptoms for 5 weeks. Was diagnosed with arthritis by PCP. On presentation, patient no acute distress. Vitals are stable. Physical exam unremarkable. Differential diagnosis includes but is not limited to arthritis, rheumatological disease, thyroid disease, electrolyte abnormality, dehydration, Lyme disease, rhabdomyolysis, intra-abdominal pathology, UTI. Toradol ordered for pain. Laboratory workup ordered including chest x-ray and CT abdomen pelvis. While receiving workup, patient became tachycardic into the 120s. EKG was obtained see below. Will get another repeat. Will add on cardiac workup. Repeat EKG shows atrial fibrillation with RVR. Patient has no history of this. Will give Cardizem. Cardiac workup already ordered. Patient asymptomatic. CBC with leukocytosis of 16.7. No anemia. Platelet count unremarkable. Coagulation panel unremarkable. D-dimer unremarkable. BMP without significant electrolyte abnormality or LAYNE. Magnesium level unremarkable. Patient has mild hyperbilirubinemia of 1.88 with mild transaminitis with an AST of 54 and an ALT of 49. Not currently endorsing any abdominal pain. BNP elevated at 3349. Likely secondary to her new onset atrial fibrillation. Lipase unremarkable. TSH unremarkable. UA negative for UTI. CT abdomen pelvis shows diverticulosis without diverticulitis. Patient has left ovarian cyst measuring 3.9 cm. Recommend pelvic ultrasound further for yady luation CPK mildly elevated at 242. Troponin unremarkable x 2. On reevaluation, patient's heart rate has improved to the 90s. Repeat EKG obtained, hard to determine rhythm on EKG. Looks like an atrial arrhythmia, slightly flutter. Nonspecific ST changes. Heart rate 84. [id number] is a 4. Patient will need to be anticoagulation due to stroke risk. Given patient's new onset a flutter/fibrillation with elevated BNP and migratory pain, concern is for possible line. Patient will warrant admission for further workup. Patient was discussed with the hospitalist who accepted admission. EKG: Interpreted by me/EM physician: EKG shows tachycardia with a heart rate of 127. Nonspecific ST changes. Possible atrial flutter. Repeat EKG shows atrial fibrillation with RVR. Patient also having PVCs. Nonspecific ST changes. Heart rate 127. Diagnostic: Interpreted by me/EM physician: Chest x-ray without consolidation, pneumothorax, cardiomegaly, patient appears to have a small left-sided effusion. Per radiology a left lower lobe/retrocardiac opacity not excluded. Impression: 1. New onset atrial fibrillation/flutter with RVR, now rate controlled 2. Migratory body pain 3. Leukocytosis 4. Mild transaminitis 5. Mild hyperbilirubinemia 6. Mildly elevated CPK 7. Elevated BNP Lab Data Labs: Laboratory Results - last 24 hr 04/09/25 04/09/25 04/09/25 11:28 12:38 13:37 WBC 16.7 H RBC 4.78 Hgb 13.8 Hct 38.4 MCV 80.3 L MCH 28.9 MCHC 35.9 RDW Std Deviation 37.4 RDW Coeff of William 12.9 Plt Count 341 MPV 8.4 Immature Gran % (Auto) 1.000 H Neut % (Auto) 87.8 H Lymph % (Auto) 8.5 L [place] % (Auto) 2.2 Eos % (Auto) 0.2 Baso % (Auto) 0.3 Absolute Neuts (auto) 14.6 H Absolute Lymphs (auto) 1.42 Nucleated RBC % 0 PT 13.2 INR 1.0 APTT 26.8 D-Dimer Quant (PE/DVT) 0.39 Sodium 136 Potassium 3.5 Chloride 106 Carbon Dioxide 17.8 L Anion Gap 11 BUN 19 Creatinine 1.02 Estim Creat Clear Calc 44.52 L Est GFR (MDRD) Non-Af 57 L BUN/Creatinine Ratio 18.7 Glucose 298 H Calcium 8.0 Magnesium 1.6 Total Bilirubin 1.88 H AST 54 H ALT 49 H Alkaline Phosphatase 42 Total Creatine Kinase 242 H Troponin T High Sens 14 Troponin T Hi Sens 2 Hr 15 H NT pro BNP II 3349 H Total Protein 5.4 L Albumin 3.3 L Globulin 2.1 L Albumin/Globulin Ratio 1.6 Lipase 12 L TSH 1.220 Urine Color Yellow Urine Clarity Clear Urine pH 7.0 Ur Specific [place] 1.010 Urine Protein 15 H Urine Glucose (UA) Normal Urine Ketones Negative Urine Occult Blood Negative Urine Nitrite Negative Urine Bilirubin Negative Urine Urobilinogen Normal Ur Leukocyte Esterase 25 H Urine RBC 0 SEEN Urine WBC 0-5 SEEN Ur Squamous Epith Cells 0-5 SEEN Urine Bacteria 0 SEEN Urine Mucus 0 SEEN Radiography Diagnostic Testing: Clinical Impression(s) from Imaging Studies Chest X-Ray 04/09/25 11:14 IMPRESSION: Left lower lobe/retrocardiac opacity not excluded. Bibasilar subsegmental ate lectasis. Trace left base effusion. Reading Location: [id number] Abdomen/Pelvis CT 04/09/25 11:55 IMPRESSION: 1. Colonic diverticulosis without signs of diverticulitis. 2. Left ovarian cyst measuring 3.9 cm. A follow-up pelvic ultrasound can be performed to further evaluate. Reading Location: [id number] Discharge Plan Triage Chief Complaint: Other, Pain/Inj ED Provider: Owen Valentine Dx/Rx/DC Orders Primary Care Provider: Jamar Aceves
[2025-04-09 11:45] LABS: Hematocrit 38.4 % (37-47); Hemoglobin 13.8 g/dL (12.0-15.0); Immature Granulocytes Count 0.170 X10^3/uL (0.0-0.0); Mean Corp Hgb Conc 35.9 g/dL (32-36); Mean Corpuscular Volume 80.3 fL (81-99); Mean Platelet Vol. 8.4 fl (6.2-12.0); NRBC Flagged by Analyzer 0 % (0-5); Platelet Count 341 K/mm3 (150-450); RBC Distribution Width CV 12.9 % (11.6-14.6); RBC Distribution Width SD 37.4 fl (35.1-43.9); Red Blood Count 4.78 M/mm3 (4.2-5.4); White Blood Count 16.7 K/mm3 (4.4-11.0)
--- NOTE | 2025-04-09 11:55 | CT_ITS ---
PROCEDURE: ABDOMEN/PELVIS W IV CONT ONLY 04/09/2025 REASON FOR EXAM: CONSTIPATION, DECREASED APPETITE TECHNIQUE: ABDOMEN/PELVIS W IV CONT ONLY Coronal and Sagittal reconstruction series were provided. CONTRAST: Isovue 300 VOLUME: 100 mL One or more dose reduction techniques were used (e.g., Automated exposure control, adjustment of the mA and/or kV according to patient size, use of iterative reconstruction technique. RADIATION DOSE SUMMARY: CTDlvol: 9.97, 14.02 mGy DLP: 738.97 mGycm COMPARISON: None. FINDINGS: LUNG BASES: No pleural effusion. Minimal atelectasis bilaterally. Multivessel coronary artery calcification. LIVER: Unremarkable. GALLBLADDER: Prior cholecystectomy. BILE DUCTS: No ductal dilation. PANCREAS: Unremarkable. SPLEEN: Unremarkable. ADRENAL GLANDS: Unremarkable. KIDNEYS: The kidneys enhance symmetrically. Multiple hypodense renal lesions bilaterally, the largest is 2.1 cm on the left, likely simple cysts. No hydronephrosis or hydroureter. Left renal cortical scarring STOMACH AND BOWEL: Small hiatal hernia. No obstruction or perforation. No wall thickening. Colonic diverticulosis. No CT evidence of colitis or acute diverticulitis. APPENDIX: Normal-appearing appendix. No CT evidence for appendicitis. RETRO/PERITONEUM: No free fluid. No free air. LYMPH NODES: No lymphadenopathy. PELVIC ORGANS: Exophytic left ovarian cyst measuring 3.9 cm. Small ovarian follicles bilaterally. A pessary is present. Unremarkable urinary bladder and uterus. VASCULATURE: No aortic aneurysm. Scattered calcified atherosclerosis. ABDOMINAL WALL AND SOFT TISSUES: Signs of prior umbilical hernia repair. BONES: No fracture or suspicious osseous abnormality. CT/Abdomen/Pelvis W IV Cont ONLY IMPRESSION: 1. Colonic diverticulosis without signs of diverticulitis. 2. Left ovarian cyst measuring 3.9 cm. A follow-up pelvic ultrasound can be p erformed to further evaluate. Reading Location: [id number]
--- NOTE | 2025-04-09 11:57 | EKG12_ITS ---
Test Reason : Blood Pressure : */* mmHG Vent. Rate : 127 BPM Atrial Rate : * BPM P-R Int : * ms QRS Dur : 102 ms QT Int : 320 ms P-R-T Axes : * -4 -38 degrees QTcB Int : 465 ms Atrial fibrillation with rapid ventricular response with premature ventricular or aberrantly conducted complexes Minimal voltage criteria for LVH, may be normal variant ( [place] product ) Nonspecific ST abnormality Abnormal ECG Confirmed by DYLAN OSBORNE, ISAAC ([id number]), manager editorial MONCHO JOYNER ([id number]) on 04/12/2025 6:57:12 AM Referred By: Confirmed By: ISAAC RICHARDSON MD
[2025-04-09 12:42] LABS: Mucous, Urine 0 SEEN /hpf (<or=2+)
[2025-04-09 13:00] LABS: Color, Urine Yellow (Yellow); Glucose, Dipstick Normal (Normal); Ketone-Dipstick Negative (Negative); Leukocyte Esterase-Dipstick 25 /ul (Negative); Nitrite-Dipstick Negative (Negative); Occult Blood-Urine Negative /ul (Negative); Protein-Dipstick 15 mg/dl (Negative); Specific Gravity, Urine 1.010 (1.002-1.030); Urine Bilirubin Dipstick Negative (Negative)
[2025-04-09 13:09] LABS: Partial Thromboplast Time 26.8 Seconds (24.1-36.2); Prothrombin Time (Protime)PT. 13.2 SECONDS (11.7-14.9)
[2025-04-09 13:27] LABS: Red Blood Cells-Urine 0 SEEN /hpf (0-5); Squamous Epithelial Cells - UA 0-5 SEEN /hpf (5-10)
[2025-04-09 13:32] LABS: D-Dimer Quantitative (DVT/PE) 0.39 FEU/ug/m (0.27-0.49)
[2025-04-09 13:35] LABS: Pro- Brain NATRIURETIC PEPTIDE 3349 pg/mL (<=1800); Troponin T High Sensitivity 14 ng/L (<=14)
[2025-04-09 13:37] LABS: AST(SGOT) 54 U/L (<=31); Alanine Aminotransfer ALT/SGPT 49 U/L (<=34); Albumin, Serum 3.3 g/dL (3.4-4.8); Alkaline Phosphatase 42 U/L (35-104); Anion Gap 11 (5-15); BUN 19 mg/dL (4-19); BUN/Creat Ratio 18.7 RATIO (10-20); Calcium,Total 8.0 mg/dL (7.6-11.0); Carbon Dioxide 17.8 mmol/L (21.0-32.0); Chloride 106 mmol/L (98-108); Estimated Creatinine Clearance 44.52 ml/min (50-250); Globulin 2.1 g/dL (2.2-4.2); Glucose 298 mg/dL (70-99); Lipase 12 U/L (13-75); Magnesium 1.6 mg/dL (1.5-2.2); Potassium 3.5 mmol/L (3.3-5.1)
--- NOTE | 2025-04-09 13:46 | EKG12_ITS ---
Test Reason : Blood Pressure : */* mmHG Vent. Rate : 84 BPM Atrial Rate : 84 BPM P-R Int : 270 ms QRS Dur : 98 ms QT Int : 370 ms P-R-T Axes : 48 8 -58 degrees QTcB Int : 437 ms Atrial fibrillation Minimal voltage criteria for LVH, may be normal variant ( [place] product ) Nonspecific ST and T wave abnormality Abnormal ECG When compared with ECG of 09-Apr-2025 12:14, MANUAL COMPARISON REQUIRED DATA IS UNCONFIRMED Confirmed by DYLAN OSBORNE, ISAAC ([id number]), market editor JAMAL WALLACE ([id number]) on 04/12/2025 10:27:31 AM Referred By: Confirmed By: ISAAC RICHARDSON MD
[2025-04-09 14:06] LABS: CPK Total, Creatine Kinase 242 U/L (24-195)
[2025-04-09 14:22] LABS: Troponin T High Sens 2 HR 15 ng/L (<=14)
--- NOTE | 2025-04-09 14:48 | PCM.HP.STD ---
HPI - General General Date of Admission: 04/09/25 Date of Service: 04/09/25 Chief Complaint: Migratory body pain, new onset A-fib HPI Narrative TONY TOTH, is a 75 F who presented to [facility] ED on 04/09/2025 with migratory body pain. Patient was seen in our ED on 3 occasions in March. Patient is [employer], has been well medical history, is only on hydrochlorothiazide for hypertension. She initially presented on 03/12 with concern for left elbow cellulitis. Noted that she was at [facility], was working in the garden but was near a lot of [place]. She had worsening elbow redness for 5 days prior to presenting here. Workup was benign and she was discharged home on a 7-day course of Bactrim. She came back to the ED on 03/15 with a rash on her upper and lower extremities. Was suspected this rash was an allergic reaction due to the Bactrim. She was given IV fluids and a dose of steroid in the ED. Bactrim was discontinued and she was discharged on a 7-day course of Keflex. She presented again to the ED on 03/27 for left upper extremity pain radiating into the neck. Cervical x-rays showed degenerative changes of the lower C-spine but no other concerning findings. ED physician noted that pain appeared to follow the C7 dermatome. Previous cellulitis had resolved, no rash present at that time. She was discharged from the ED on gabapentin with plan to follow-up with her PCP. She saw her PCP on 03/31. Noted to her PCP that she had apparent migrating arthralgias and per family, PCP was concern for arthritis and recommended conservative treatment. On arrival to the ED patient was in normal sinus rhythm and normotensive. Oxygen saturations were in the mid 90s on room air at rest. While receiving workup, patient became tachycardic to the 120s. EKG showed A-fib with RVR. No prior history of A-fib per patient. She was given a dose of IV Cardizem with rate improvement to the 90s to 100s, but she remained in A-fib/flutter. Lab workup notable for BNP 3349, total bilirubin 1.88, AST 54, ALT 49. Mild leukocytosis with WBC count 16. Troponins negative x 2. Chest x-ray showed trace left pleural effusion with left lower lobe retrocardiac opacity not excluded. Given her new onset A-fib with RVR with elevated BNP, hospitalist was contacted for admission. I saw the patient at bedside in the ED, and daughter were present. Patient was laying back in bed and fatigued appearing but otherwise conversing normally and in no acute distress. She reported mild bilateral elbow and wrist discomfort as well as has mild left-sided chest discomfort. Denied any shortness of breath at rest. Did report mild lower extremity swelling that had developed over the past few weeks. Denied any palpitations. Denied any lightheadedness or dizziness. No other acute concerns currently. Will be admitted for further management. [facility] Medical History Wrist fracture Hypertension Home Medications ?Medication ?Instructions ?Recorded ?Last Taken ?Type hydrochlorothiazide 25 mg tablet 25 mg PO DAILY blood pressure 03/12/25 04/09/25 History gabapentin 300 mg capsule 300 mg PO QHS pain #30 caps 03/27/25 Unknown Rx Held on 04/09/25. Instructions: pt stopped taking Allergy/AdvReac Type Severity Reaction Status Date / Time sulfamethoxazole (From Allergy Hives Verified 03/27/25 16:54 Bactrim) trimethoprim (From Bactrim) Allergy Hives Verified 03/27/25 16:54 Surgical History Hx of cholecystectomy H/O hernia repair Social History Smoking Status: Never smoker ROS Constitutional Constitutional: Reports fatigue and malaise; Denies chills, fever(s) or weakness Eyes Eyes: Denies change in vision Cardiovascular Cardiovascular: Reports dyspnea on exertion and edema; Denies chest pain, lightheadedness, orthopnea or palpitations Respiratory/Chest Respiratory/Chest: Denies cough, shortness of breath at rest or wheezing Gastrointestinal Gastrointestinal: Denies abdominal pain, nausea or vomiting Musculoskeletal Musculoskeletal: Reports arthralgias; Denies myalgias Neurologic Neurologic: Denies dizziness, focal weakness or headache(s) Vital Signs Vital Signs Vital Signs: 04/09/25 10:50 04/09/25 11:25 04/09/25 11:45 Temperature 97.6 F L Temperature Source Temporal Pulse Rate 74 139 H Respiratory Rate 18 21 H Respiratory Pattern Normal Blood Pressure 126/90 H 130/73 H Blood Pressure Mean 102 89 Pulse Ox 98 95 Oxygen Delivery Method Room Air 04/09/25 12:00 04/09/25 12:15 04/09/25 12:30 Temperature Temperature Source Pulse Rate 129 H 133 H 127 H Respiratory Rate 22 H 20 H 29 H Respiratory Pattern Blood Pressure Blood Pressure Mean Pulse Ox Oxygen Delivery Method 04/09/25 12:34 04/09/25 12:45 04/09/25 13:00 Temperature Temperature Source Pulse Rate 129 H 92 94 Respiratory Rate 25 H 20 H 20 H Respiratory Pattern Blood Pressure 131/89 H 105/74 109/65 Blood Pressure Mean 98 83 80 Pulse Ox 98 97 97 Oxygen Delivery Method 04/09/25 13:15 04/09/25 13:21 04/09/25 13:30 Temperature Temperature Source Pulse Rate 103 H 94 87 Respiratory Rate 16 20 H 37 H Respiratory Pattern Blood Pressure 121/85 H 121/85 H 128/75 H Blood Pressure Mean 95 97 86 Pulse Ox 98 97 92 Oxygen Delivery Method Room Air 04/09/25 13:45 04/09/25 14:00 04/09/25 14:15 Temperature Temperature Source Pulse Rate 88 108 H 100 Respiratory Rate 23 H 27 H 20 H Respiratory Pattern Blood Pressure 119/89 H 139/78 H 110/82 H Blood Pressure Mean 99 98 93 Pulse Ox 83 Oxygen Delivery Method Weight Weight: 72.8 kg Body Mass Index (BMI) 29.3 Physical Exam Const alert, oriented x3, no apparent distress and average body habitus Constitutional Narrative: Elderly [employer] female, fatigued appearing but otherwise laying back comfortably in bed, conversing normally, in no acute distress. General Appearance: cooperative and comfortable HEENT normocephalic, head/scalp atraumatic, hearing grossly normal bilaterally, nasal mucous membranes and turbinates normal and moist oral mucous membranes Eyes PERRL, EOMs intact bilaterally and conjunctivae normal Neck full ROM Chest inspection of chest normal Resp normal respiratory effort and no use of accessory muscles Resp Narrative: Breathing comfortably on room air at rest. Mildly diminished breath sounds in bilateral lung bases, no wheezing or crackles noted. Cardio no murmurs and peripheral pulses 2+ throughout Cardio Narrative: A-fib, rate controlled. GI normal to inspection, nondistended, normoactive bowel sounds, soft to palpation, non-tender and non-distended Back/Spine normal ROM Extremity normal to inspection and full ROM Extremity Narrative: +1 lower extremity nonpitting edema bilaterally. Neuro moves all extremities and no focal motor deficits Speech: speech normal Motor Exam: strength 5/5 throughout Psych mental status grossly normal Mood & Affect: anxious Results Lab / Micro Data 04/09/25 11:28 04/09/25 11:28 Labs: Laboratory Results - last 24 hr 04/09/25 11:28: WBC 16.7 H, RBC 4.78, Hgb 13.8, Hct 38.4, MCV 80.3 L, MCH 28.9, MCHC 35.9, RDW Std Deviation 37.4, RDW Coeff of William 12.9, Plt Count 341, MPV 8.4, Immature Gran % (Auto) 1.000 H, Neut % (Auto) 87.8 H, Lymph % (Auto) 8.5 L, [place] % (Auto) 2.2, Eos % (Auto) 0.2, Baso % (Auto) 0.3, Absolute Neuts (auto) 14.6 H, Absolute Lymphs (auto) 1.42, Nucleated RBC % 0, PT 13.2, INR 1.0, APTT 26.8, D-Dimer Quant (PE/DVT) 0.39, Sodium 136, Potassium 3.5, Chloride 106, Carbon Dioxide 17.8 L, Anion Gap 11, BUN 19, Creatinine 1.02, Estim Creat Clear Calc 44.52 L, Est GFR (MDRD) Non-Af 57 L, BUN/Creatinine Ratio 18.7, Glucose 298 H, Calcium 8.0, Magnesium 1.6, Total Bilirubin 1.88 H, AST 54 H, ALT 49 H, Alkaline Phosphatase 42, Total Creatine Kinase 242 H, Troponin T High Sens 14, NT pro BNP II 3349 H, Total Protein 5.4 L, Albumin 3.3 L, Globulin 2.1 L, Albumin/Globulin Ratio 1.6, Lipase 12 L, TSH 1.220 04/09/25 12:38: Urine Color Yellow, Urine Clarity Clear, Urine pH 7.0, Ur Specific [place] 1.010, Urine Protein 15 H, Urine Glucose (UA) Normal, Urine Ketones Negative, Urine Occult Blood Negative, Urine Nitrite Negative, Urine Bilirubin Negative, Urine Urobilinogen Normal, Ur Leukocyte Esterase 25 H, Urine RBC 0 SEEN, Urine WBC 0-5 SEEN, Ur Squamous Epith Cells 0-5 SEEN, Urine Bacteria 0 SEEN, Urine Mucus 0 SEEN 04/09/25 13:37: Troponin T Hi Sens 2 Hr 15 H Micro: Microbiology 04/09/25 11:28 Mucosa - Nose SARS-CoV-2, Influenza & RSV (PCR) - Final Imaging Radiology Impression Chest X-Ray 04/09/25 11:14 IMPRESSION: Left lower lobe/retrocardiac opacity not excluded. Bibasilar subsegmental atelectasis. Trace left base effusion. Reading Location: [facility] Abdomen/Pelvis CT 04/09/25 11:55 IMPRESSION: 1. Colonic diverticulosis without signs of diverticulitis. 2. Left ovarian cyst measuring 3.9 cm. A follow-up pelvic ultrasound can be performed to further evaluate. Reading Location: [facility] Assessment & Plan Assessment/Plan (1) Migratory polyarthritis: (2) Paroxysmal atrial fibrillation with RVR: PLAN: Plan Patient is a 75-year-old female who presented to [facility] ED on 04/09/2025 with migratory body pain. 1. New onset A-fib/flutter with RVR with concern for new onset heart failure ? Admit under inpatient status to PCU. Presented to ED in NSR, flipped into A-fib/flutter while in the ED. Multiple EKGs obtained; unclear if flutter waves present in one of the EKGs. Overall most consistent with A-fib with RVR. Patient asymptomatic with A-fib. BNP 3349 and elevated LFTs as below concern for new onset heart failure suspected due to A-fib. Chest x-ray with trace left pleural effusion, minimal vascular congestion and patient satting well on room air at rest. Given Cardizem 20 mg bolus in the ED with improvement in rate to the 90s to 100s but remained in A-fib. [id number] of 4. Given dose of therapeutic Lovenox in the ED and will start Eliquis 5 mg twice daily for anticoagulation. Will start Lopressor 25 mg twice daily for rate control. Echo ordered. Given 1 dose of IV Lasix 20 mg in the ED; will hold on further diuretics until echo results are available. Continue cardiac monitoring. 2. Migratory body pain with recent rash concerning for Lyme disease ? Patient with multiple ED visits in March, see HPI for further details. Initially presented with left elbow redness concerning for cellulitis or possibly poison jose angel, as patient was working in a garden [place] No tick bite noted. Initially treated with Bactrim with allergic reaction so was then switched to Keflex. Left elbow erythema has largely resolved but patient has had migratory arthralgias in her elbows, wrists and knees over the past few weeks. Given her presentation, cannot rule out Lyme disease. Lyme antibody ordered. Will empirically treat with p.o. doxycycline at this time. 3. Elevated liver enzymes ? Total bilirubin 1.88, AST 54, ALT [address] abdomen pelvis showed prior cholecystectomy and no liver abnormalities. Suspect secondary to hepatic congestion in setting of heart failure as noted above. Follow-up a.m. CMP. 4. Hyperglycemia ? Blood glucose 298 on admit. No history of diabetes noted. A1c ordered. Will hold on glucose checks or sliding scale insulin until A1c results. 5. Leukocytosis ? WBC count 16.7, neutrophil predominant. Suspect some degree of hemoconcentration as hemoglobin is close to 14 and baseline is 12-13. May be secondary to Lyme disease with generalized joint inflammation as above. Afebrile. Treating with antibiotics as above. Follow-up a.m. CBC. 6. Ovarian cyst ? 3.9 cm exophytic left ovarian cyst noted on CT abdomen pelvis. Pelvic ultrasound showed a 3.4 cm simple cyst that radiology noted is normal certainly benign with 1 year recommended follow-up. 7. Hypertension ? Normotensive on admit. Will hold home hydrochlorothiazide for now with A-fib and initiation of beta-sharee as above. DVT prophylaxis: Lovenox CODE STATUS: Full code, verified Expected disposition: Home, TBD Total clinical time spent by myself addressing the patient's medical issues, reviewing all the data, and collaborating with patient's care team: 75 minutes. Charges/Coding Visit Charges Inpatient E&M: 34502 Init Hosp L3
--- NOTE | 2025-04-09 14:53 | ECHOD_ITS ---
Reason For Study Reason For Study: ATRIAL FIBRILLATION/FLUTTER Procedure This was a 2D Doppler, Color Flow transthoracic echocardiogram. Exam performed portable in patient room. Left Ventricle Normal left ventricular size. Normal left ventricular wall thickness. Normal LVEF with estimated ejection fraction of 50-55%. No regional wall motion abnormalities. Grade 1 diastolic dysfunction. Right Ventricle Normal right ventricular size, wall thickness, and systolic function. Atria The left and right atria are normal. Mitral Valve The mitral valve is structurally normal. No prolapse or stenosis seen. Trivial mitral valve insufficiency. Tricuspid Valve Normal tricuspid valve. Trivial tricuspid valve insufficiency. Unable to estimate RV systolic pressure due to inadequate jet, pulmonary artery pressure probably normal. Aortic Valve Normal aortic valve. Pulmonic Valve The pulmonic valve is not well visualized. Great Vessels Normal sized aortic root. Pericardium/Pleural No pericardial effusion. Epicardial fat. MMode/2D Measurements & Calculations LVIDd: 4.9 cm IVSd: 0.84 cm Ao root diam: 3.2 cm LVIDs: 3.2 cm LVPWd: 0.85 cm RVDd: 3.2 cm FS: 34.3 % LAV(MOD-bp): 33.9 ml LVAd ap4: 24.2 cm2 SV(MOD-sp4): 32.6 ml LAV(MOD-bp) Indexed: 19.5 ml/m2 LVLd ap4: 7.8 cm SI(MOD-sp4): 18.8 ml/m2 LAV(MOD-sp2): 32.1 ml EDV(MOD-sp4): 64.3 ml LAV(MOD-sp4): 33.2 ml EDV(sp4-el): 63.8 ml LVAs ap4: 15.0 cm2 LVLs ap4: 6.3 cm ESV(MOD-sp4): 31.6 ml ESV(sp4-el): 30.6 ml EF(MOD-sp4): 50.8 % EF(sp4-el): 52.1 % SV(sp4-el): 33.3 ml LA A4 area: 14.1 cm2 LA dimension(2D): 3.1 cm RA A4 area: 10.8 cm2 TAPSE: 1.8 cm Time Measurements MV dec time: 0.19 sec Doppler Measurements & Calculations MV E max giuseppe: 63.0 cm/sec Lat Peak E' Giuseppe: 9.4 cm/sec Med Peak E' Giuseppe: 7.0 cm/sec MV A max giuseppe: 55.1 cm/sec E/E' lat: 6.7 E/E' med: 9.0 MV E/A: 1.1 MV V2 max: 67.9 cm/sec MV P1/2t max giuseppe: 64.2 cm/sec Ao V2 max: 117.7 cm/sec MV max P.8 mmHg MV P1/2t: 61.7 msec Ao max P.5 mmHg MV V2 mean: 47.0 cm/sec Ao V2 mean: 86.7 cm/sec MV mean P.96 mmHg MV dec slope: 304.4 cm/sec2 Ao mean P.4 mmHg MV V2 VTI: 16.7 cm MVA(P1/2t): 3.6 cm2 Ao V2 VTI: 21.5 cm AV (velocity ratio): 0.61 LV V1 max: 72.0 cm/sec PA V2 max: 73.6 cm/sec TR max giuseppe: 219.2 cm/sec LV V1 max P.1 mmHg PA V2 mean: 50.0 cm/sec TR max P.2 mmHg LV V1 mean P.2 mmHg LV V1 mean: 50.9 cm/sec LV V1 VTI: 13.1 cm ECHO/Echo Complete Interpretation Summary Normal left ventricular size. Normal left ventricular wall thickness. Normal LV EF with estimated ejection fraction of 50-55%. No regional wall motion abnormalities. Grade 1 diastolic dysfunction. Normal right ventricular size, wall thickness, and systolic function. No hemodynamically significant valvular heart disease. Normal sized aortic root. Prominent pericardial fat. Ordering Physician: Jacob Portillo Referring Physician: Jamar Aceves Performed By: Robyn Chen RDCS, RVT
--- NOTE | 2025-04-09 14:56 | US_ITS ---
PROCEDURE: PELVIC (NON ) 04/09/2025 REASON FOR EXAM: OVARIAN CYST ON CT TECHNIQUE: Transabdominal pelvic ultrasound utilizing 2D grayscale and color Doppler. COMPARISON: Abdominal CT earlier today 04/09/2025. FINDINGS: Anteverted uterus appears grossly normal in size and smooth in contour, measuring 9.8 x 4.5 x 2.6 cm. No discrete uterine myoma is seen. No abnormal collection within the uterine cavity. Endometrial stripe complex appears within normal limits, measuring up to 0.5 cm in thickness. Right ovary measures 3.2 x 2.3 x 2.3 cm. Left ovary measures 4 x 3.7 x 3.1 cm. Blood flow is demonstrated bilaterally within the ovaries on color Doppler. No evidence of torsion. Right ovary contains a small simple cyst/dominant follicle, no specific follow- up indicated. Left ovary contains a more prominent but simple anechoic cyst measuring 3.4 x 3.4 x 3.1 cm. No adnexal mass or free pelvic fluid is seen. Urinary bladder volume noted to be 203 cc. US/Pelvic (Non ) IMPRESSION: 1. Normal sonographic appearance of the uterus for age. 2. Right ovarian small simple cyst/dominant follicle (O-RADS 1); No follow up. 3. Left ovarian 3.4 cm simple cyst (O-RADS 2); almost certainly benign; follow- up ultrasound in 1 year is recommended in a postmenopausal patient to reassess. Reading Location: [id number]
[2025-04-09] MEDS: Potassium Chloride Oral Tablet 20 MEQ 40 MEQ PO (16:44)
[2025-04-09] MEDS: Furosemide 20 MG/2 ML VIAL IV (16:44)
[2025-04-09] MEDS: 0.9% Saline Lock 10 ML Syringe IV (16:44)
[2025-04-09] MEDS: 0.9% Normal Saline (250mL Bag) 250 ML 15 ML IV (16:45)
[2025-04-09] MEDS: Magnesium Sulfate 2 GM in Dextrose 5%-Water (100mL Bag) 100 ML IV (17:15)
[2025-04-09 17:49] LABS: Troponin T High Sensitivity 14 ng/L (<=14)
--- NOTE | 2025-04-09 18:08 | EKG12_ITS ---
Test Reason : Blood Pressure : */* mmHG Vent. Rate : 127 BPM Atrial Rate : 271 BPM P-R Int : * ms QRS Dur : 104 ms QT Int : 336 ms P-R-T Axes : * 3 -41 degrees QTcB Int : 488 ms Atrial flutter with variable A-V block Minimal voltage criteria for LVH, may be normal variant ( [place] product ) Nonspecific ST abnormality Abnormal ECG Confirmed by DYLAN OSBORNE, ISAAC ([id number]), editor news MONCHO JOYNER ([id number]) on 04/12/2025 6:57:02 AM Referred By: Rudy Confirmed By: ISAAC RICHARDSON MD
--- NOTE | 2025-04-09 18:41 | CASEMGMT ---
Addendum entered by Ivon Barkley 04/10/25 10:29: Dtr stated [facility] is not open over the weekend. If pt discharges over the weekend, they would like to get any new Rx's from [facility]. Original Note: RN?CM?ASSESSMENT ? RN?CM?to room to meet with patient for initial transition planning/care coordination?assessment.?RN?CM?introduced self and role at [facility].? Pt voices understanding and consents to?assessment?at this time.? Pt resting in bed in no distress at this time.? Daughter, May, @ bedside and pt agreeable to her being present during assessment. Pt is A/O at this time and answers all questions appropriately.?? Care providers, pharmacy, and demographics verified/updated at this time. ? PCP: Dr Call (Dr Марина Romero) in [facility] Specialists: none Preferred Pharmacy: [facility] in [place]. [place] [facility] [place]it:?none. Discussed [employer] 30-day free trial offer card and instructed on use. Made aware this is a eyva-ro-m-lifetime use card. Questions answered. Provided w/information for [employer] if they would need further financial support. LNOK: , Darryl. Daughter, May Living Arrangements: Lives w/her in one-story home w/basement w/no steps to enter. Pt does not have to go to the basement. Pt is independent w/ADL's. Daughter, May, son-in-law, and 4 grandchildren live in home in same yard as pt and her . Family supportive. Pt manages her own medications, family assists as needed. does cooking, family does other home mgnt tasks. Transportation:?Hire drivers DME: ? Denies using any DME and denies needs.?There are grab bars in the shower/bathroom for pt's that pt uses at times. HHC/SNF: No hx of either. ? Pt was very active up until about 5 weeks ago, doing yard work, fishing,etc. She has not been as active/had as much energy since getting rash after weeding about 5 weeks ago and has had on-going issues w/cellulitis since then. Discussed discharge planning. Pt wishes to return home and states has no concerns with going home at time of discharge. She states has great family support. ? PLAN:??Home w/family support. Pt has been provided w/[employer] 30-day free trial offer card and instructed on use. ? Clint BSN?RN?CM ? ?
--- NOTE | 2025-04-09 19:26 | EKG12_ITS ---
Test Reason : RHYTHM CHANGE Blood Pressure : */* mmHG Vent. Rate : 79 BPM Atrial Rate : 79 BPM P-R Int : 168 ms QRS Dur : 102 ms QT Int : 422 ms P-R-T Axes : 10 20 7 degrees QTcB Int : 483 ms Normal sinus rhythm Minimal voltage criteria for LVH, may be normal variant ( [place] product ) Borderline ECG When compared with ECG of 09-Apr-2025 13:46, MANUAL COMPARISON REQUIRED DATA IS UNCONFIRMED Confirmed by DYLAN OSBORNE, ISAAC ([id number]), news copy editor JAMAL WALLACE ([id number]) on 04/12/2025 10:30:03 AM Referred By: Confirmed By: ISAAC RICHARDSON MD
[2025-04-10] VITALS (7 sets, daily range): BP systolic 116–142; BP diastolic 68–88; PULSE 69–87; RESP 15–16; TEMP 35.9–36.7; O2SAT 93–100
[2025-04-10 07:33] LABS: Hematocrit 35.0 % (37-47); Hemoglobin 12.6 g/dL (12.0-15.0); Mean Corp Hgb Conc 36.0 g/dL (32-36); Mean Corpuscular Volume 80.3 fL (81-99); Mean Platelet Vol. 8.7 fl (6.2-12.0); Platelet Count 342 K/mm3 (150-450); RBC Distribution Width CV 12.9 % (11.6-14.6); RBC Distribution Width SD 37.1 fl (35.1-43.9); Red Blood Count 4.36 M/mm3 (4.2-5.4); White Blood Count 21.3 K/mm3 (4.4-11.0)
[2025-04-10 08:04] LABS: AST(SGOT) 18 U/L (<=31); Alanine Aminotransfer ALT/SGPT 12 U/L (<=34); Albumin, Serum 3.3 g/dL (3.4-4.8); Alkaline Phosphatase 80 U/L (35-104); Anion Gap 11 (5-15); BUN 14 mg/dL (4-19); BUN/Creat Ratio 21.9 RATIO (10-20); Calcium,Total 9.0 mg/dL (7.6-11.0); Carbon Dioxide 25.8 mmol/L (21.0-32.0); Chloride 82 mmol/L (98-108); Estimated Creatinine Clearance 59.97 ml/min (50-250); Globulin 3.5 g/dL (2.2-4.2); Glucose 113 mg/dL (70-99); Potassium 3.6 mmol/L (3.3-5.1)
--- NOTE | 2025-04-10 09:24 | PCM.PN.HOSP ---
Reason for Visit Chief Complaint: Migratory body pain, new onset A-fib Subjective Subjective Patient spontaneously converted to normal sinus rhythm. Based on her blood pressure should be able to uptitrate her beta-sharee some. Objective Data Objective Data Vital Signs: Vital Signs Temp Pulse Resp BP Pulse Ox O2 Del Method 97.7 F L 87 15 125/88 H 100 Room Air 04/10/25 08:19 04/10/25 08:19 04/10/25 08:19 04/10/25 08:19 04/10/25 08:19 04/10/25 08:19 Oxygen Delivery Method Room Air Weight: 70.8 kg Body Mass Index (BMI) 25.9 Intake & Output: Intake and Output for Last 24 Hours 04/08/25 04/09/25 04/10/25 23:59 23:59 23:59 Intake Total 471.5 / 471.5 Output Total 450 / 450 Balance 471.5 / 21.5 -450 / -450 Lab / Micro Data 04/10/25 06:42 04/10/25 16:15 Labs: Laboratory Results - last 24 hr 04/09/25 11:28: WBC 16.7 H, RBC 4.78, Hgb 13.8, Hct 38.4, MCV 80.3 L, MCH 28.9, MCHC 35.9, RDW Std Deviation 37.4, RDW Coeff of William 12.9, Plt Count 341, MPV 8.4, Immature Gran % (Auto) 1.000 H, Neut % (Auto) 87.8 H, Lymph % (Auto) 8.5 L, [place] % (Auto) 2.2, Eos % (Auto) 0.2, Baso % (Auto) 0.3, Absolute Neuts (auto) 14.6 H, Absolute Lymphs (auto) 1.42, Nucleated RBC % 0, PT 13.2, INR 1.0, APTT 26.8, D-Dimer Quant (PE/DVT) 0.39, Sodium 136, Potassium 3.5, Chloride 106, Carbon Dioxide 17.8 L, Anion Gap 11, BUN 19, Creatinine 1.02, Estim Creat Clear Calc 44.52 L, Est GFR (MDRD) Non-Af 57 L, BUN/Creatinine Ratio 18.7, Glucose 298 H, Hemoglobin A1c 6.1 H, Calcium 8.0, Magnesium 1.6, Total Bilirubin 1.88 H, AST 54 H, ALT 49 H, Alkaline Phosphatase 42, Total Creatine Kinase 242 H, Troponin T High Sens 14, NT pro BNP II 3349 H, Total Protein 5.4 L, Albumin 3.3 L, Globulin 2.1 L, Albumin/Globulin Ratio 1.6, Lipase 12 L, TSH 1.220 04/09/25 12:38: Urine Color Yellow, Urine Clarity Clear, Urine pH 7.0, Ur Specific [place] 1.010, Urine Protein 15 H, Urine Glucose (UA) Normal, Urine Ketones Negative, Urine Occult Blood Negative, Urine Nitrite Negative, Urine Bilirubin Negative, Urine Urobilinogen Normal, Ur Leukocyte Esterase 25 H, Urine RBC 0 SEEN, Urine WBC 0-5 SEEN, Ur Squamous Epith Cells 0-5 SEEN, Urine Bacteria 0 SEEN, Urine Mucus 0 SEEN 04/09/25 13:37: Troponin T Hi Sens 2 Hr 15 H 04/09/25 16:45: Troponin T High Sens 14 04/10/25 06:42: WBC 21.3 H, RBC 4.36, Hgb 12.6, Hct 35.0 L, MCV 80.3 L, MCH 28.9, MCHC 36.0, RDW Std Deviation 37.1, RDW Coeff of William 12.9, Plt Count 342, MPV 8.7, Sodium 120 L, Potassium 3.6, Chloride 82 L, Carbon Dioxide 25.8, Anion Gap 11, BUN 14, Creatinine 0.64 L, Estim Creat Clear Calc 59.97, Est GFR (MDRD) Non-Af 92, BUN/Creatinine Ratio 21.9 H, Glucose 113 H, Calcium 9.0, Total Bilirubin 0.89, AST 18, ALT 12, Alkaline Phosphatase 80, Total Protein 6.8, Albumin 3.3 L, Globulin 3.5, Albumin/Globulin Ratio 0.9 Micro: Microbiology 04/09/25 11:28 Mucosa - Nose SARS-CoV-2, Influenza & RSV (PCR) - Final Radiography Diagnostic Testing: Radiology Impression Chest X-Ray 04/09/25 11:14 IMPRESSION: Left lower lobe/retrocardiac opacity not excluded. Bibasilar subsegmental atelectasis. Trace left base effusion. Reading Location: [facility] Abdomen/Pelvis CT 04/09/25 11:55 IMPRESSION: 1. Colonic diverticulosis without signs of diverticulitis. 2. Left ovarian cyst measuring 3.9 cm. A follow-up pelvic ultrasound can be performed to further evaluate. Reading Location: [facility] [place] Pelvis Ultrasound 04/09/25 14:56 IMPRESSION: 1. Normal sonographic appearance of the uterus for age. 2. Right ovarian small simple cyst/dominant follicle (O-RADS 1); No follow up. 3. Left ovarian 3.4 cm simple cyst (O-RADS 2); almost certainly benign; follow-up ultrasound in 1 year is recommended in a postmenopausal patient to reassess. Reading Location: [facility] Assessment & Plan Assessment/Plan (1) Migratory polyarthritis: (2) Paroxysmal atrial fibrillation with RVR: (3) Hyponatremia: (4) Leukocytosis: PLAN: Plan Paroxysmal atrial fibrillation with RVR - Patient has self converted back into normal sinus rhythm - Continue metoprolol but increase to 50 twice daily as blood pressures are still low related - Continue Eliquis - TSH within normal limits - Echocardiogram done and shows EF of 50 to 55% with no wall motion normalities, grade 1 diastolic dysfunction, normal RV function and size, normal valves and normal aortic root - Continue to monitor on telemetry through the night Migratory polymyalgias - Admitting physician was concerned about Lyme disease - Lyme titer pending - Will continue doxycycline for now - Check ESR and CRP and if markedly elevated we will pursue further autoimmune workup Hyponatremia - Sodium was markedly different from admission at which time was 135 - Been down to 120s today and patient is completely asymptomatic and confirmed on repeat - Will continue to hold HCTZ - Check urine sodium - check urine osmolality - Check serum osmolality - Check cortisol level - Check uric acid Leukocytosis - White count has trended up - Patient with markedly elevated differential at 87.8 - Check blood cultures - Sed rate/CRP is pending - UA is unremarkable Left ovarian cyst - Ultrasound ordered and shows 2 ovarian cysts 1 right 1 left both identified is likely benign Recent rash - [place] to be allergic reaction - No current rash noted - Monitor clinically Transaminitis - Resolved Essential hypertension - Continue metoprolol increased dose - patient does have some LVH on echocardiogram -Will discontinue HCTZ at discharge due to hyponatremia DVT prophylaxis Can continue subcu Lovenox CODE STATUS - Full code Charges/Coding Visit Charges Inpatient E&M: 19351 Subs Hosp L2
[2025-04-10] MEDS: APIXABAN 5 MG TABLET PO ×2 (09:55→21:12)
[2025-04-10 17:02] LABS: Anion Gap 11 (5-15); BUN 19 mg/dL (4-19); BUN/Creat Ratio 26.5 RATIO (10-20); Calcium,Total 8.9 mg/dL (7.6-11.0); Carbon Dioxide 26.4 mmol/L (21.0-32.0); Chloride 83 mmol/L (98-108); Estimated Creatinine Clearance 59.97 ml/min (50-250); Glucose 100 mg/dL (70-99); Potassium 3.9 mmol/L (3.3-5.1)
[2025-04-10 18:27] LABS: CRP 114.00 mg/L (0.0-3.0); Uric Acid 3.4 mg/dL (2.6-6.0)
[2025-04-10 18:58] LABS: CORTISOL PM 8.47 ug/dL (2.68-10.50)
[2025-04-10 19:42] LABS: Osmolality, Serum 264 mOsm/KG (280-301)
[2025-04-11] VITALS (7 sets, daily range): BP systolic 143–160; BP diastolic 67–91; PULSE 61–68; RESP 16–18; TEMP 35.7–36.5; O2SAT 95–98
[2025-04-11 05:12] LABS: Osmolality, Urine 566 mOsm/KG
[2025-04-11 06:38] LABS: Hematocrit 34.2 % (37-47); Hemoglobin 12.0 g/dL (12.0-15.0); Immature Granulocytes Count 0.120 X10^3/uL (0.0-0.0); Mean Corp Hgb Conc 35.1 g/dL (32-36); Mean Corpuscular Volume 80.9 fL (81-99); Mean Platelet Vol. 8.5 fl (6.2-12.0); NRBC Flagged by Analyzer 0 % (0-5); Platelet Count 318 K/mm3 (150-450); RBC Distribution Width CV 13.1 % (11.6-14.6); RBC Distribution Width SD 38.2 fl (35.1-43.9); Red Blood Count 4.23 M/mm3 (4.2-5.4); White Blood Count 9.9 K/mm3 (4.4-11.0)
[2025-04-11 07:03] LABS: Anion Gap 11 (5-15); BUN 19 mg/dL (4-19); BUN/Creat Ratio 29.8 RATIO (10-20); Calcium,Total 8.8 mg/dL (7.6-11.0); Carbon Dioxide 26.4 mmol/L (21.0-32.0); Chloride 84 mmol/L (98-108); Estimated Creatinine Clearance 59.97 ml/min (50-250); Glucose 120 mg/dL (70-99); Potassium 3.6 mmol/L (3.3-5.1)
--- NOTE | 2025-04-11 07:36 | PN.HOSP_ITS ---
Reason for Visit Chief Complaint: Migratory body pain, new onset A-fib Subjective Subjective Patient still with intermittent rigors and migratory polymyalgias. Remains in sinus rhythm with no further episodes of atrial fibrillation. Objective Data Objective Data Vital Signs: Vital Signs Temp Pulse Resp BP Pulse Ox O2 Del Method 96.2 F L 61 16 150/86 H 98 Room Air 04/11/25 03:15 04/11/25 03:15 04/11/25 03:15 04/11/25 03:15 04/11/25 03:15 04/11/25 03:15 Oxygen Delivery Method Room Air Weight: 70.8 kg Body Mass Index (BMI) 25.9 Intake & Output: Intake and Output for Last 24 Hours 04/09/25 04/10/25 04/11/25 23:59 23:59 23:59 Intake Total 471.5 / 471.5 480 / 480 Output Total 451 / 451 300 / 300 Balance 471.5 / 21.5 29 / 29 -300 / -300 Lab / Micro Data 04/11/25 05:39 04/11/25 05:39 Labs: Laboratory Results - last 24 hr 04/10/25 06:42: ESR 57 H, Sodium 120 L, Potassium 3.6, Chloride 82 L, Carbon Dioxide 25.8, Anion Gap 11, BUN 14, Creatinine 0.64 L, Estim Creat Clear Calc 59.97, Est GFR (MDRD) Non-Af 92, BUN/Creatinine Ratio 21.9 H, Glucose 113 H, Uric Acid 3.4, Calcium 9.0, Total Bilirubin 0.89, AST 18, ALT 12, Alkaline Phosphatase 80, C-React Prot Ext Range 114.00 H, Total Protein 6.8, Albumin 3.3 L, Globulin 3.5, Albumin/Globulin Ratio 0.9, Cortisol PM Sample 8.47 04/10/25 16:15: Sodium 120 L, Potassium 3.9, Chloride 83 L, Carbon Dioxide 26.4, Anion Gap 11, BUN 19, Creatinine 0.72, Estim Creat Clear Calc 59.97, Est GFR (MDRD) Non-Af 87, BUN/Creatinine Ratio 26.5 H, Glucose 100 H, Calcium 8.9 04/10/25 18:15: Serum Osmolality 264 L 04/11/25 03:23: Urine Osmolality 566, Ur Random Sodium < 20 04/11/25 05:39: WBC 9.9, RBC 4.23, Hgb 12.0, Hct 34.2 L, MCV 80.9 L, MCH 28.4, MCHC 35.1, RDW Std Deviation 38.2, RDW Coeff of William 13.1, Plt Count 318, MPV 8.5, Immature Gran % (Auto) 1.200 H, Neut % (Auto) 77.9 H, Lymph % (Auto) 16.2 L , [place] % (Auto) 3.1, Eos % (Auto) 1.2, Baso % (Auto) 0.4, Absolute Neuts (auto) 7.7, Absolute Lymphs (auto) 1.61, Nucleated RBC % 0, Sodium 121 L, Potassium 3.6, Chloride 84 L, Carbon Dioxide 26.4, Anion Gap 11, BUN 19, Creatinine 0.62 L , Estim Creat Clear Calc 59.97, Est GFR (MDRD) Non-Af 93, BUN/Creatinine Ratio 29.8 H, Glucose 120 H, Calcium 8.8 Micro: Microbiology 04/09/25 11:28 Mucosa - Nose SARS-CoV-2, Influenza & RSV (PCR) - Final Radiography Diagnostic Testing: Radiology Impression Echocardiogram 04/09/25 14:53 Interpretation Summary Normal left ventricular size. Normal left ventricular wall thickness. Normal LVEF with estimated ejection fraction of 50-55%. No regional wall motion abnormalities. Grade 1 diastolic dysfunction. Normal right ventricular size, wall thickness, and systolic function. No hemodynamically significant valvular heart disease. Normal sized aortic root. Prominent pericardial fat. Ordering Physician: Jacob Portillo Referring Physician: Jamar Aceves Performed By: Robyn Chen, RDCS, RVT Physical Exam Const alert, oriented x3, no apparent distress and average body habitus Constitutional Narrative: Elderly Sikh female, remains fatigued appearing, covered in multiple blankets, appears ill but not toxic, family at bedside General Appearance: cooperative HEENT normocephalic, head/scalp atraumatic, hearing grossly normal bilaterally and moist oral mucous membranes HEENT Narrative: No thrush Resp normal respiratory effort, no retractions, no use of accessory muscles and clear to auscultation bilaterally Auscultation: Negative for rales, rhonchi or wheezes Cardio regular rate, regular rhythm, S1 normal heart sound, S2 normal heart sound, no murmurs, no rub, no gallops, no clicks and no JVD GI normal to inspection, nondistended, normoactive bowel sounds, soft to palpation and non-tender Extremity no clubbing, cyanosis or edema Neuro moves all extremities and no focal motor deficits Speech: speech normal Psych mental status grossly normal and affect normal Psych Narrative: Very pleasant, interacts appropriately Assessment & Plan Assessment/Plan (1) Migratory polyarthritis: (2) Paroxysmal atrial fibrillation with RVR: (3) Hyponatremia: (4) Leukocytosis: PLAN: Plan Paroxysmal atrial fibrillation with RVR - Patient has self converted back into normal sinus rhythm and no further incidence of A-fib - Continue metoprolol 50 mg p.o. 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 twice daily next-blood pressures remain elevated But will monitor throughout the day today and if any up titration is needed we will add second agent tomorrow - patient does have some LVH on echocardiogram -Will discontinue HCTZ at discharge due to hyponatremia DVT prophylaxis -Continue subcu Lovenox CODE STATUS - Full code Charges/Coding Visit Charges Inpatient E&M: 02543 Subs Hosp L2
[2025-04-11] MEDS: APIXABAN 5 MG TABLET PO ×2 (09:26→21:26)
[2025-04-11 11:07] LABS: Lyme Scn Total Ab w/Rflx Positive (Negative)
[2025-04-11 15:23] LABS: Anion Gap 12 (5-15); BUN 14 mg/dL (4-19); BUN/Creat Ratio 24.0 RATIO (10-20); Calcium,Total 8.8 mg/dL (7.6-11.0); Carbon Dioxide 24.9 mmol/L (21.0-32.0); Chloride 85 mmol/L (98-108); Estimated Creatinine Clearance 59.97 ml/min (50-250); Glucose 133 mg/dL (70-99); Potassium 3.6 mmol/L (3.3-5.1)
[2025-04-12 03:15] VITALS: BP 154/94; PULSE 60; RESP 16; TEMP 36.7; O2SAT 95
[2025-04-12 06:17] LABS: Hematocrit 34.6 % (37-47); Hemoglobin 12.1 g/dL (12.0-15.0); Immature Granulocytes Count 0.110 X10^3/uL (0.0-0.0); Mean Corp Hgb Conc 35.0 g/dL (32-36); Mean Corpuscular Volume 82.2 fL (81-99); Mean Platelet Vol. 8.5 fl (6.2-12.0); NRBC Flagged by Analyzer 0 % (0-5); Platelet Count 340 K/mm3 (150-450); RBC Distribution Width CV 13.1 % (11.6-14.6); RBC Distribution Width SD 39.0 fl (35.1-43.9); Red Blood Count 4.21 M/mm3 (4.2-5.4); White Blood Count 7.4 K/mm3 (4.4-11.0)
[2025-04-12 06:34] LABS: Anion Gap 11 (5-15); BUN 11 mg/dL (4-19); BUN/Creat Ratio 18.7 RATIO (10-20); Calcium,Total 9.1 mg/dL (7.6-11.0); Carbon Dioxide 25.5 mmol/L (21.0-32.0); Chloride 90 mmol/L (98-108); Estimated Creatinine Clearance 59.97 ml/min (50-250); Glucose 103 mg/dL (70-99); Potassium 3.5 mmol/L (3.3-5.1)
[2025-04-12 07:53] VITALS: O2SAT 95
[2025-04-12 08:45] VITALS: BP 144/92; PULSE 70; RESP 16; TEMP 36.2; O2SAT 98
[2025-04-12 08:56] VITALS: PULSE 70
[2025-04-12] MEDS: APIXABAN 5 MG TABLET PO (08:57)
--- NOTE | 2025-04-12 11:14 | PCM.CONS.GEN ---
Assessment & Plan Assessment/Plan (1) Lyme disease: PLAN: Feeling better, ok for home with two weeks po doxy. Will follow prn, thank you, d/w primary team (2) Migratory polyarthritis: HPI Consult Data Date of Consult: 04/12/25 HPI Narrative Reason for Consultation: lyme HPI Narrative: TONY TOTH, is a 75 F who presented 04/09 with one month body aches, chills, fatigue, not feeling well. Sx started with rash on RUE, mild itching, no pain. No known tick bites. Given bactrim, then keflex, rash resolved but aches and fatigue continued. Admitted here, lyme (+), now on doxy and feeling better. No syncope, no neck pain. Full ROS performed and neg except as noted above. [facility] Medical History Wrist fracture Hypertension Home Medications ?Medication ?Instructions ?Recorded ?Last Taken ?Type hydrochlorothiazide 25 mg tablet 25 mg PO DAILY blood pressure 03/12/25 04/09/25 History gabapentin 300 mg capsule 300 mg PO QHS pain #30 caps 03/27/25 Unknown Rx Held on 04/09/25. Instructions: pt stopped taking Allergy/AdvReac Type Severity Reaction Status Date / Time sulfamethoxazole (From Allergy Hives Verified 03/27/25 16:54 Bactrim) trimethoprim (From Bactrim) Allergy Hives Verified 03/27/25 16:54 Surgical History Hx of cholecystectomy H/O hernia repair Social History Smoking Status: Never smoker Physical Exam Const alert, oriented x3 and no apparent distress General Appearance: cooperative HEENT normocephalic and head/scalp atraumatic Eyes PERRL and EOMs intact bilaterally Neck supple and No nodes Resp normal air movement and clear to auscultation bilaterally Cardio regular rate and regular rhythm GI soft to palpation, non-tender and non-distended Extremity General Extremity: Negative for edema Skin no rashes or lesions noted Neuro CN's II-XII intact bilaterally Lab / Micro Data Attestation: I reviewed the patient's lab results. 04/12/25 05:33 04/12/25 05:33 Labs: Laboratory Results - last 24 hr 04/09/25 12:49: CSF Lyme IgM Antibody Positive, Lyme Disease IgG Ab Positive, Lyme Total Antibody Positive, Lyme Disease Ab Note Comment H 04/11/25 14:04: Sodium 122 L, Potassium 3.6, Chloride 85 L, Carbon Dioxide 24.9, Anion Gap 12, BUN 14, Creatinine 0.60 L, Estim Creat Clear Calc 59.97, Est GFR (MDRD) Non-Af 94, BUN/Creatinine Ratio 24.0 H, Glucose 133 H, Calcium 8.8 04/12/25 05:33: WBC 7.4, RBC 4.21, Hgb 12.1, Hct 34.6 L, MCV 82.2, MCH 28.7, MCHC 35.0, RDW Std Deviation 39.0, RDW Coeff of William 13.1, Plt Count 340, MPV 8.5, Immature Gran % (Auto) 1.500 H, Neut % (Auto) 65.4, Lymph % (Auto) 23.9, [place] % (Auto) 6.5, Eos % (Auto) 1.8, Baso % (Auto) 0.9, Absolute Neuts (auto) 4.8, Absolute Lymphs (auto) 1.76, Nucleated RBC % 0, Sodium 126 L, Potassium 3.5, Chloride 90 L, Carbon Dioxide 25.5, Anion Gap 11, BUN 11, Creatinine 0.57 L, Estim Creat Clear Calc 59.97, Est GFR (MDRD) Non-Af 95, BUN/Creatinine Ratio 18.7, Glucose 103 H, Calcium 9.1
--- NOTE | 2025-04-12 12:23 | DS.PCM_ITS ---
Providers Date of Admission: 04/09/25 Date of Discharge: 04/12/25 Primary Care Physician: Марина Romero, DENIA Consultations 04/11/25 13:53 Consult: Infectious Disease Routine Consulting Provider: Brandon Arguello Reason for Consult: Lyme disease EMERGENT Consult: No MD Notified: Yes Date Notified: 04/12/25 Time Notified: 02:44 Method of Notification: Answering Service Reason For Visit: NEW ONSET AFIB W RVR Diagnosis Discharge Diagnosis (1) Lyme disease: Status: Acute Code(s): A69.20 - Lyme disease, unspecified (2) Migratory polyarthritis: Status: Acute Code(s): M13.80 - Other specified arthritis, unspecified site Plan Paroxysmal atrial fibrillation with RVR - Patient has self converted back into normal sinus rhythm and no further incidence of A-fib - Continue metoprolol 50 mg p.o. 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 twice daily next-blood pressures remain elevated But will monitor throughout the day today and if any up titration is needed we will add second agent tomorrow - patient does have some LVH on echocardiogram -Will discontinue HCTZ at discharge due to hyponatremia DVT prophylaxis -Continue subcu Lovenox CODE STATUS - Full code Medications at Discharge Home Medications amlodipine 5 mg tablet 5 mg PO DAILY #30 tabs 04/12/25 apixaban 5 mg tablet (Eliquis) 5 mg PO BID #60 tabs 04/12/25 doxycycline monohydrate 100 mg capsule 100 mg PO BID #24 caps 04/12/25 metoprolol tartrate 50 mg tablet 50 mg PO BID #60 tabs 04/12/25 sodium chloride 1,000 mg soluble tablet 1,000 mg PO BID #28 tabs 04/12/25 Weight / BMI Weight Weight: 70.8 kg Body Mass Index (BMI) 25.9 ABG / Lab / Microbiology Data 04/12/25 05:33 04/12/25 05:33 Laboratory: Laboratory Results - last 24 hr 04/09/25 12:49: CSF Lyme IgM Antibody Positive, Lyme Disease IgG Ab Positive, Lyme Total Antibody Positive, Lyme Disease Ab Note Comment H 04/11/25 14:04: Sodium 122 L, Potassium 3.6, Chloride 85 L, Carbon Dioxide 24.9, Anion Gap 12, BUN 14, Creatinine 0.60 L, Estim Creat Clear Calc 59.97, Est GFR (MDRD) Non-Af 94, BUN/Creatinine Ratio 24.0 H, Glucose 133 H, Calcium 8.8 04/12/25 05:33: WBC 7.4, RBC 4.21, Hgb 12.1, Hct 34.6 L, MCV 82.2, MCH 28.7, MCHC 35.0, RDW Std Deviation 39.0, RDW Coeff of William 13.1, Plt Count 340, MPV 8.5, Immature Gran % (Auto) 1.500 H, Neut % (Auto) 65.4, Lymph % (Auto) 23.9, [place] % (Auto) 6.5, Eos % (Auto) 1.8, Baso % (Auto) 0.9, Absolute Neuts (auto) 4.8, Absolute Lymphs (auto) 1.76, Nucleated RBC % 0, Sodium 126 L, Potassium 3.5, Chloride 90 L, Carbon Dioxide 25.5, Anion Gap 11, BUN 11, Creatinine 0.57 L , Estim Creat Clear Calc 59.97, Est GFR (MDRD) Non-Af 95, BUN/Creatinine Ratio 18.7, Glucose 103 H, Calcium 9.1 Microbiology: Microbiology 04/09/25 11:28 Mucosa - Nose SARS-CoV-2, Influenza & RSV (PCR) - Final D/C Instructions Discharge Activity: Return to Normal Activity DC O2, CPAP, BIPAP Needs Home O2 Discharge instructions: No Meaningful Use Info Meaningful Use Meaningful Use Diagnoses (Choose all that apply): None applicable Discharge Plan Admission Admit Date/Time: 04/09/25 14:48 Primary Reason for Your Visit: Palpitations/ Migratory body pain Attending Provider: Jessika Florez Primary Care Provider: Марина Romero NP Consulting Providers: Jacob Portillo; Brandon Arguello Instructions Additional Instructions / Restrictions: 1. Please ask your primary care physician to obtain a basic metabolic profile next 5 to 7 days to recheck your sodium level 2. Please restrict your fluid intake at home to off fluids of 2.5 L or less. Discharge Orders/Prescriptions Prescriptions: New doxycycline monohydrate 100 mg Capsule 100 mg PO BID Qty: 24 0RF metoprolol tartrate 50 mg Tablet 50 mg PO BID Qty: 60 0RF sodium chloride 1,000 mg Tablet,Soluble 1,000 mg PO BID Qty: 28 0RF Eliquis 5 mg Tablet 5 mg PO BID Qty: 60 2RF amlodipine 5 mg tablet 5 mg PO DAILY Qty: 30 0RF Discontinued hydrochlorothiazide 25 mg tablet 25 mg PO DAILY gabapentin 300 mg capsule 300 mg PO QHS Qty: 30 0RF Referrals / Follow Up: Jamar Aceves DO [Non-Staff] - In 1 Week Марина Romero NP, [facility] [Primary Care Provider] - Disposition Disposition (needs filled in before D/C Order can be placed): Home, Self Care Charges/Coding Visit Charges Inpatient E&M: 65975 Disch Hosp >30min
--- NOTE | 2025-04-12 12:23 | PCM.DC.SUM ---
Providers Date of Admission: 04/09/25 Date of Discharge: 04/12/25 Primary Care Physician: Марина Romero, MARVIN-Alexia Consultations 04/11/25 13:53 Consult: Infectious Disease Routine Consulting Provider: Brandon Arguello Reason for Consult: Lyme disease EMERGENT Consult: No MD Notified: Yes Date Notified: 04/12/25 Time Notified: 02:44 Method of Notification: Answering Service Reason For Visit: NEW ONSET AFIB W RVR Diagnosis Discharge Diagnosis (1) Lyme disease: Status: Acute Code(s): A69.20 - Lyme disease, unspecified (2) Migratory polyarthritis: Status: Acute Code(s): M13.80 - Other specified arthritis, unspecified site Medications at Discharge Home Medications amlodipine 5 mg tablet 5 mg PO DAILY #30 tabs 04/12/25 apixaban 5 mg tablet (Eliquis) 5 mg PO BID #60 tabs 04/12/25 doxycycline monohydrate 100 mg capsule 100 mg PO BID #24 caps 04/12/25 metoprolol tartrate 50 mg tablet 50 mg PO BID #60 tabs 04/12/25 sodium chloride 1,000 mg soluble tablet 1,000 mg PO BID #28 tabs 04/12/25 Hospital Course Operations None Procedures 2-D Echocardiogram, EKG and - (Chest x-ray/abdominal/pelvic CT/pelvic ultrasound) Summary of Care Provided Minutes Spent on Discharge: 38 Hospital Course: Mrs. Gr is a 75-year-old white Ep[employer] female who presented to the emergency department at [facility] on 04/09/2025 with migratory body pain and was found to be in A-fib with RVR. Patient has been to the emergency department about 5 times in the last 5 weeks. She initially presented on 03 12 with concern for left elbow cellulitis. She was at [facility] and working in the garden but was near a lot of douglas and had worsening elbow redness for about 5 days and then presented here. Workup was benign and she was discharged home with a 7-day course of Bactrim. She came back to the emergency department on 03/15/2025 with a rash on her upper and lower extremities. It was felt that the rash was an allergic reaction to the Bactrim so it was discontinued. She was given IV fluids and steroids in the emergency department and the antibiotic was transition to a 7-day course of Keflex. She had presented emergency department on 03/27/2025 for left upper extremity pain that was radiating to her neck. Cervical x-ray showed degenerative changes but no other concerning findings. Her previous cellulitis rash had resolved. She was discharged to emergency department with gabapentin and plans to follow-up with her primary care physician. She she saw her PCP on 03/31/2025 and noted to them that she was having migrating arthralgias. They were concerned for arthritis and recommended conservative treatment. On arrival to the emergency department she was in normal sinus rhythm and normotensive. While receiving workup she became tachycardic with heart rates up in the 120s EKG was performed and she was found to be in A-fib with RVR. She had no previous history of atrial fibrillation. She was given 1 dose of IV Cardizem with a rate improvement to 90-100 remain in atrial fibrillation. CBC noted a markedly elevated white count at 16,000 with a left shift. Chemistry panel noted elevated BNP at 3349 with an elevated bilirubin and elevated AST and ALT. Troponin were negative x 3. Chest x-ray showed a trace left lower pleural effusion. Given her new diagnosis of A-fib she was admitted to the PCU. She was placed on Eliquis and metoprolol and self converted back to normal sinus rhythm and stayed in sinus rhythm for the rest of her hospitalization. At discharge she was maintained on metoprolol 50 mg p.o. twice daily and Eliquis 5 mg p.o. twice daily. On presentation given her migratory arthralgias and rashes a Lyme titer sent and found to be positive on 04/11/2025. She was placed on empiric doxycycline at the time of admission. After 48 hours of Bactrim her pain had much improved and she was no longer having rigors and her appetite had improved overall. ID was consulted and they did recommend continuing Bactrim for total of 14-day course. She had completed 2 days during her hospitalization so she was sent home with another 12-day course of antibiotics. If she has any issues she could consider following up with Dr. Arguello but she was already clinically improving, her white count had resolved, appetite improved, myalgias were improving. She was also found to be hyponatremic. 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 I suspect this is related to her Lyme disease. We placed her on fluid restriction and put her on salt tablets twice daily. Sodium was improving at the time of discharge is 126. I have advised close follow-up with a repeat BMP in the next 5 to 7 days as an outpatient to ensure her sodium continues to trend up and normalized. At that time we should trial her off salt tablets and let her go back to fluids without restriction. She is to follow-up with her primary care physician within the next week. Cardiology appointment was made for her for follow-up at the time of discharge. Prescriptions were sent to local pharmacy prior to discharge for amlodipine which was started for her blood pressure, apixaban, doxycycline, metoprolol, and salt tablets. Her HCTZ was discontinued due to her hyponatremia. She was incidentally found to have a left ovarian cyst on CT. Follow-up ultrasound was ordered and showed 2 ovarian cysts that appear to be either benign. Follow-up in 1 year was recommended. Discharge diagnoses: Lyme disease Paroxysmal atrial fibrillation with RVR Hypoosmolar hyponatremia secondary to suspected SIADH related to Lyme disease Leukocytosis Left ovarian cyst Essential hypertension Physical Exam Narrative Patient states overall she is feeling much better. No rigors last night, no significant myalgias last night. Appetite was improved this morning. Const alert, oriented x3, no apparent distress, average body habitus, no limitations, healthy appearing and well nourished Constitutional Narrative: Elderly Episcopalian female, appears much improved, does not appear toxic, appears comfortable, daughter at bedside General Appearance: cooperative, comfortable and well kempt Exam Limitations: no limitations Nutritional Appearance: overweight HEENT normocephalic, head/scalp atraumatic, hearing grossly normal bilaterally and moist oral mucous membranes HEENT Narrative: Mallampati 2, no thrush Eyes conjunctivae normal Eyes Narrative: No scleral icterus Resp normal respiratory effort, no retractions, no use of accessory muscles and clear to auscultation bilaterally Auscultation: Negative for rales, rhonchi or wheezes Cardio regular rate, regular rhythm, S1 normal heart sound, S2 normal heart sound, no murmurs, no rub, no gallops and no clicks GI normal to inspection, nondistended, normoactive bowel sounds, soft to palpation and non-tender Extremity no clubbing, cyanosis or edema Extremity Narrative: 2+ pedal and radial pulses Skin no rashes or lesions noted, skin turgor normal, no jaundice, no petechiae and no mottling Neuro moves all extremities and no focal motor deficits Speech: speech normal Psych mental status grossly normal and affect normal Psych Narrative: Very pleasant, interacts appropriately Weight / BMI Weight Weight: 70.8 kg Body Mass Index (BMI) 25.9 ABG / Lab / Microbiology Data 04/12/25 05:33 04/12/25 05:33 Laboratory: Laboratory Results - last 24 hr 04/09/25 12:49: CSF Lyme IgM Antibody Positive, Lyme Disease IgG Ab Positive, Lyme Total Antibody Positive, Lyme Disease Ab Note Comment H 04/11/25 14:04: Sodium 122 L, Potassium 3.6, Chloride 85 L, Carbon Dioxide 24.9, Anion Gap 12, BUN 14, Creatinine 0.60 L, Estim Creat Clear Calc 59.97, Est GFR (MDRD) Non-Af 94, BUN/Creatinine Ratio 24.0 H, Glucose 133 H, Calcium 8.8 04/12/25 05:33: WBC 7.4, RBC 4.21, Hgb 12.1, Hct 34.6 L, MCV 82.2, MCH 28.7, MCHC 35.0, RDW Std Deviation 39.0, RDW Coeff of William 13.1, Plt Count 340, MPV 8.5, Immature Gran % (Auto) 1.500 H, Neut % (Auto) 65.4, Lymph % (Auto) 23.9, [place] % (Auto) 6.5, Eos % (Auto) 1.8, Baso % (Auto) 0.9, Absolute Neuts (auto) 4.8, Absolute Lymphs (auto) 1.76, Nucleated RBC % 0, Sodium 126 L, Potassium 3.5, Chloride 90 L, Carbon Dioxide 25.5, Anion Gap 11, BUN 11, Creatinine 0.57 L, Estim Creat Clear Calc 59.97, Est GFR (MDRD) Non-Af 95, BUN/Creatinine Ratio 18.7, Glucose 103 H, Calcium 9.1 Microbiology: Microbiology 04/09/25 11:28 Mucosa - Nose SARS-CoV-2, Influenza & RSV (PCR) - Final D/C Instructions Discharge Activity: Return to Normal Activity DC O2, CPAP, BIPAP Needs Home O2 Discharge instructions: No Meaningful Use Info Meaningful Use Meaningful Use Diagnoses (Choose all that apply): None applicable Discharge Plan Admission Admit Date/Time: 04/09/25 14:48 Primary Reason for Your Visit: Palpitations/ Migratory body pain Attending Provider: Jessika Florez Primary Care Provider: Марина Romero NP Consulting Providers: Jacob Portillo; Brandon Arguello Instructions Additional Instructions / Restrictions: 1. Please ask your primary care physician to obtain a basic metabolic profile next 5 to 7 days to recheck your sodium level 2. Please restrict your fluid intake at home to off fluids of 2.5 L or less. Discharge Orders/Prescriptions Prescriptions: New doxycycline monohydrate 100 mg Capsule 100 mg PO BID Qty: 24 0RF metoprolol tartrate 50 mg Tablet 50 mg PO BID Qty: 60 0RF sodium chloride 1,000 mg Tablet,Soluble 1,000 mg PO BID Qty: 28 0RF Eliquis 5 mg Tablet 5 mg PO BID Qty: 60 2RF amlodipine 5 mg tablet 5 mg PO DAILY Qty: 30 0RF Discontinued hydrochlorothiazide 25 mg tablet 25 mg PO DAILY gabapentin 300 mg capsule 300 mg PO QHS Qty: 30 0RF Referrals / Follow Up: Jamar Aceves DO [Non-Staff] - In 1 Week Марина Romero NP, [employer] [facility] [Primary Care Provider] - Disposition Disposition (needs filled in before D/C Order can be placed): Home, Self Care Charges/Coding Visit Charges Inpatient E&M: 62214 Disch Hosp >30min
--- NOTE | 2025-04-12 13:13 | CASEMGMT ---
Patient has order for discharge. RN CM in to discuss needs at discharge. Patient denies needs or help at discharge. Patient had no further questions or concerns.
--- NOTE | 2025-04-12 14:11 | PHA.DC_ITS ---
Pharmacy [facility] Counseling Pharmacy Service has performed discharge medication reconciliation and counseling for this patient. The patient's discharge medication list was reviewed for discrepancies and discrepancies were resolved. The patient was counseled on the following discharge medications and changes in medications for homegoing were reviewed. The Reason for Use, instructions for use, and potential side effects were reviewed for all new medications. The patient's questions regarding all of their medications were answered. 1. Amlodipine 5 mg PO daily 2. Eliquis 5 mg PO BID 3. Doxycycline 100 mg PO BID 4. Metoprolol tartrate 50 mg PO BID 5. Sodium chloride 1000 mg PO BID The patient was able to verbally demonstrate an understanding of their discharge medications. Medications at Discharge Home Medications amlodipine 5 mg tablet 5 mg PO DAILY #30 tabs 04/12/25 apixaban 5 mg tablet (Eliquis) 5 mg PO BID #60 tabs 04/12/25 doxycycline monohydrate 100 mg capsule 100 mg PO BID #24 caps 04/12/25 metoprolol tartrate 50 mg tablet 50 mg PO BID #60 tabs 04/12/25 sodium chloride 1,000 mg soluble tablet 1,000 mg PO BID #28 tabs 04/12/25
== END 2025-04-12 17:58 | disposition home or self-care (01) | DRG 309 ==
LOC: ED 11:06 → PCU 15:10
PROVIDERS: Admitting Provider Hospitalist; Emergency Provider Surgery; PCP Nurse Practitioner Family; Visit Provider Internal Medicine
DX: I48.0 Paroxysmal atrial fibrillation (principal); A69.20 Lyme disease, unspecified; E22.2 Syndrome of inappropriate secretion of antidiuretic hormone; I10 Essential (primary) hypertension; K57.30 Diverticulosis of large intestine without perforation or abscess without bleeding; M19.90 Unspecified osteoarthritis, unspecified site; N83.292 Other ovarian cyst, left side; R73.9 Hyperglycemia, unspecified
CPT/HCPCS: 36415; 71046; 74177; 76856; 80048; 80053; 81001; 82533; 82550; 83036; 83690; 83735; 83880; 83930; 83935; 84300; 84443; 84484; 84550; 85025; 85027; 85379; 85610; 85652; 85730; 86140; 86618; 87040; 87631; 93005; 93306; 94668; 97161; 97166; 99285; Q9967; A4216; J1938

== ENCOUNTER → 2025-05-13 | Outpatient (CLI) | payer OTHER, SELFPAY | END | disposition home or self-care (01) | LOC: PSN 08:57 | PROVIDERS: PCP Family Medicine; Referring Provider Internal Medicine Cardiovascular Disease; Visit Provider Internal Medicine Cardiovascular Disease | DX: I48.0 Paroxysmal atrial fibrillation (principal) | CPT/HCPCS: 93225; 93226 ==